=== PATIENT | female | born 1930 | race Caucasian/White ===

== ENCOUNTER 2016-08-14 09:23 | Inpatient (IN) | payer OTHER, BC ==
[~2016-08-14] VITALS: Ht 162.6 cm; Wt 107.5 kg
--- NOTE | ~2016-08-14 | HC ---
[facility] [place] [address] CONSULTATION Name: KIAH HOOD Room #: 301-I ADM IN M.R.#: [id number] Admission: 08/14/16 Attend Phys: Concepcion Mahoney Discharge: Date of : 29 Report #: [id number] THIS REPORT FOR: //name// CC: Concepcion Hernandez DATE OF SERVICE: 08/19/2016 HISTORY OF PRESENT ILLNESS: The patient is an 85-year-old white female who was transferred from [facility]. She had a fall at home when she tripped over a step and fell on her shoulder. This was noted to be a non-syncopal fall. Workup revealed a left upper humeral fracture. She was noted to have some acute renal insufficiency. She also had some hyperkalemia and was given some Kayexalate. She was given some normal saline for hyponatremia. She has been seen by Orthopedics with a plan for a left hemiarthroplasty tomorrow. We are seeing her in rehabilitation medicine consultation. PAST MEDICAL HISTORY: Includes hypertension, colitis, anxiety, cataracts, hysterectomy, tubal ligation, loop LINQ replacement, foot spur surgery and . PAST SURGICAL HISTORY: As noted above. HABITS: Nonsmoker. No history of tobacco use or alcohol use. ALLERGIES: LEVOFLOXACIN. SOCIAL HISTORY: Lives in [place]. House, split level. Did not utilize gait aids. There is a daughter that lives in the area that can assist. The patient is uncertain if the daughter could stay with her or if she could stay with the daughter. REVIEW OF SYSTEMS: Did not offer any current complaints of chest pain, shortness of breath or abdominal discomfort. She has some left shoulder discomfort as expected. No complaints of other extremity joint complaints at this time. PHYSICAL EXAMINATION: GENERAL: She is an 85-year-old white female, rather hard of hearing, but in no distress. VITAL SIGNS: Last recorded temperature is 98.6, pulse 95, respirations 14 and blood pressure 144/77. NEUROLOGIC: The patient is alert. She is pleasant. She is a good historian. Facies are symmetric. She has functional range of motion of the right upper extremity, without focal weakness. Left upper extremity [place] [address] CONSULTATION Name: KIAH HOOD Room #: 301-I [facility] IN .R.#: [id number] Admission: 08/14/16 Attend Phys: Concepcion Mahoney Discharge: Date of : 29 Report #: [id number] is a wrap in place. She can move her thumb and fingers without difficulty. I did not test her proximally. In her lower extremities, there is no focal calf swelling. Functional range of motion with strength to grade 4 to 4+/5. DTRs are trace to 1. She has transfer with contact guard and has ambulated 15 feet contact guard thus far. ASSESSMENT: An 85-year-old white female with the following problem list: 1. Left proximal humerus fracture. 2. Non-syncopal fall. 3. Acute renal insufficiency. 4. Paroxysmal atrial fibrillation. 5. Electrolyte abnormalities. 6. Hypertension. 7. Previous bradycardia. 8. Anxiety. 9. Hypothyroidism. 10. Loop LINQ in place. PLAN: The patient is scheduled for her shoulder hemiarthroplasty tomorrow. Agree with therapy orders as written. At this point, we will follow along with you regarding any rehabilitation therapy needs. Thank you for asking us to assist in this patient's care. By: [id number] [id number] Blair Garcia MD /nt
--- NOTE | ~2016-08-14 | HC ---
[facility] [place] [address] CONSULTATION Name: KIAH HOOD Room #: 430-P ADM IN M.R.#: [id number] Admission: 08/14/16 Attend Phys: Concepcion Mahoney Discharge: Date of : 29 Report #: [id number] THIS REPORT FOR: //name// CC: Concepcion Hernandez DATE OF SERVICE: 08/20/2016 PRIMARY CARE PHYSICIAN: Dr. Porfirio Purcell. REFERRAL PHYSICIAN: Dr. Davis. REASON FOR REFERRAL: Dyspnea and hypoxia. HISTORY OF PRESENT ILLNESS: The patient is an 85-year-old white female who was admitted on 08/14/2016 for acute renal failure. She was found to be hypoxic . A pulmonary consultation was requested. The patient had a fall earlier on August 11 sustaining a left humerus fracture. She was seen and evaluated and outpatient surgery was planned. When she returned to the hospital for surgical repair for surgery on August 13, patient was found to have acute renal failure. She was subsequently admitted. She was initially seen at [facility] and was transferred to [facility]. Of note, creatinine on admission was 4.4. Earlier today, she underwent repair of a complex comminuted four-part fracture of the left proximal humerus. Earlier today, she underwent left proximal humeral hemiarthroplasty for complex comminuted four-part fracture involving the left proximal humerus. The patient earlier had received a local interscalene block. The patient had minimal emesis during the preoperative period with complaints of dyspnea and hypoxia, the patient was electively intubated and underwent general anesthesia. Postoperatively, the patient is extubated. There was some increased secretions noted. Concerns were possible aspiration. Presently, patient is somewhat sedated from anesthesia. She complains of dyspnea. Portable chest x-ray shows vascular congestion, questionable left lower lobe infiltrates. PAST MEDICAL HISTORY: As mentioned above including history of hypertension, [facility] [address] [place] [address] CONSULTATION Name: KIAH HOOD Room #: 430-[facility] IN [facility]#: [id number] Admission: 08/14/16 Attend Phys: Concepcion Mahoney Discharge: Date of : 29 Report #: [id number] hypothyroidism, history of colitis, anxiety disorder, hypercholesterolemia. PAST SURGICAL HISTORY: Include cataract surgery, hysterectomy, bilateral tubal ligation, prior , a bone spur surgery. ALLERGIES: LEVOFLOXACIN, reactions as specified. CURRENT MEDICATIONS: Reviewed. FAMILY HISTORY: Noncontributory. SOCIAL HISTORY: She is . She lives independently by herself. She resides in [place], [place]. She had been active up until the day of admission. REVIEW OF SYSTEMS: Deferred as patient has still somnolent following general anesthesia. PHYSICAL EXAMINATION: GENERAL: She is arousable, in no apparent distress. VITAL SIGNS: Temperature is 98.3 degrees Fahrenheit, pulse is 104, respiratory rate is 18, blood pressure is 173/76 mmHg, saturation is 92%. She is on 3 liters of O2. HEENT: Normocephalic, atraumatic. NECK: Supple, without lymphadenopathy or thyromegaly. CHEST: Breath sounds are decreased bilaterally, coarse breath sounds bilaterally noted. CARDIOVASCULAR: Heart sounds are distant. No obvious murmurs or gallop. There is no JVD. There is no carotid bruit. Pulses are positive 2+/4+ bilaterally. ABDOMEN: Soft, nontender, no organomegaly or masses felt. EXTREMITIES: There is edema, cyanosis or clubbing. IMPRESSION: 1. Complex comminuted left proximal humerus fracture, status post surgery as mentioned above. 2. Hypoxia. There were concerns for possible mild aspiration. Chest x-ray shows possible left lower lobe atelectasis. 3. Acute kidney injury. 4. Hypertension. 5. Paroxysmal atrial fibrillation, sick sinus syndrome. 6. Anemia. 7. Severe protein calorie malnutrition, albumin 1.7, baseline arterial blood gas on August 15 revealed pH 7.34, pCO2 of 33, pO2 79. RECOMMENDATION AND DISCUSSION: Hypoxia in this 85-year-old white female undergoing surgery. There is an inherent expectant risk for possible postop [address] [address] CONSULTATION Name: KIAH HOOD Room #: 430-P [facility] IN M.R.#: [id number] Admission: 08/14/16 Attend Phys: Concepcion Mahoney Discharge: Date of : 29 Report #: [id number] hypoxia including atelectasis, even mild aspiration. We will treat for presumed aspiration pneumonia, Zosyn and vancomycin with be initiated. Wean O2 for saturation 90%. Follow up chest x-ray tomorrow. We will also start chest physiotherapy once the patient is able. Thank you for this consultation. <ELECTRONICALLY SIGNED> By: Eliezer Elder MD 08/21/16 1628 1631 0506 Eliezer Elder MD /nt
--- NOTE | ~2016-08-14 | EKG ---
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 : 1930 Requested By: Babs Trujillo Order Number: [id number] MD: Harris Hitchcock Measurements Intervals Craig Rate: 68 P: 59 CT: 218 QRS: 54 QRSD: 90 T: 42 QT: 395 QTc: 421 Interpretive Statements Sinus rhythm Borderline prolonged CT interval Baseline wander in lead(s) II No previous ECG available for comparison Electronically Signed On 08-16-2016 11:28:27 CDT by Harris Hitchcock [email or web address] <ELECTRONICALLY SIGNED> By: Harris Hitchcock MD, [facility] 08/16/16 1128 1153 1153 Harris Hitchcock MD, [facility] /EPI
--- NOTE | ~2016-08-14 | O ---
[facility] [place] [address] OPERATIVE REPORT Name: KIAH HOOD Room #: 240-P ADM IN M.R.#: [id number] Admission: 08/14/16 Attend Phys: Concepcion Mahoney Discharge: Date of : 29 Report #: [id number] THIS REPORT FOR: //name// CC: Concepcion Kangwster DATE OF SERVICE: 08/20/2016 PREOPERATIVE DIAGNOSIS: Complex comminuted 4-part fracture, left proximal humerus. POSTOPERATIVE DIAGNOSIS: Complex comminuted 4-part fracture, left proximal humerus. PROCEDURE: Left proximal humeral hemiarthroplasty. SURGEON: Blair Rojas MD. INDICATIONS: This heavy, but still reasonably active 85-year-old female presents after a fall which resulted in a severely comminuted displaced 4-part fracture of the left proximal humerus. She was transferred here because of other general medical and renal problems. Those have improved, and she now seems ready to proceed with surgical reconstruction. The patient and family have talked with my partner Dr. Elizabeth, and they have agreed to go ahead with a proximal humeral hemiarthroplasty procedure, given the other delays due to her other medical issues. Dr. Elizabeth and family have asked me to proceed with surgery today, as Dr. Elizabeth is currently out of town. I have discussed with the patient and family the nature of this injury. We have reviewed the x-rays, and I have explained that this is a severely comminuted fracture with significant displacement. Consequently, I think a hemiarthroplasty reconstruction is the most reasonable approach. They understand and wished to proceed. DESCRIPTION OF PROCEDURE: The patient was taken to the operating room. An interscalene block was applied, and she was also placed under general anesthesia. At the beginning of the case, she was somewhat anxious and seemed to be a bit tachypneic. In addition, during the induction dissection, she had a small amount of vomiting. This did not seem to contaminate the airway, but we elected to pause before proceeding and evaluate her airway and vocal cords were carefully suctioned and no debris was noted. The tube was suctioned, and no debris was noted in her lungs. A chest x-ray was obtained, and there was no evidence of pneumothorax from the block and no any other significant pathology. Given this, it seemed that she was safe and stable and seemed to be exchanging nicely. We elected therefore to go ahead with our planned procedure. She was then positioned on the beachchair in a 30 degree semi upright position. [address] [address] OPERATIVE REPORT Name: KIAH HOOD Room #: [address] [place] [address] IN M.R.#: [id number] Admission: 08/14/16 Attend Phys: Concepcion Mahoney Discharge: Date of : 29 Report #: [id number] The left shoulder and arm were meticulously prepped and draped. Prophylactic intravenous antibiotics were administered. An anterior longitudinal skin incision was made, beginning at about the coracoid process and extending distally along the deltopectoral interval. The deltoid was elevated and reflected laterally along with the cephalic vein. The pectoralis was identified, and the upper 1-2 cm were elevated from the humerus to allow better exposure. The area of fracture of the proximal humerus was badly comminuted with significant displacement of multiple fracture fragments. The subscapularis had been essentially pulled completely away from the bony attachment with only a few small fragments of bone remaining. The biceps tendon seems to be intact and stable. The greater tuberosity is markedly osteopenic, but there is still some bone attached, and this was secured with a large #2 FiberWire suture. The humeral head fragment was also comminuted, and this was removed and the joint surface of the glenoid was inspected and felt to be satisfactory. The labrum appeared to be intact, and the attachment of the biceps tendon appeared to be intact. The smaller loose bony fragments in the area were carefully debrided, and area was thoroughly irrigated. At this point, the proximal aspect of the humeral canal was inspected. The upper aspect was levelled just slightly to create a good surface for application of the hemiarthroplasty stem. The DePuy proximal humeral hemiarthroplasty components were utilized. The canal was opened and seemed to be best sized for a size 10 stem. A trial reduction was performed and a -5 mm body was placed on the 10 mm trial stem, a 44 mm collar and a 44 x 15 mm head seemed to fit most appropriately. The implant was positioned in about 25-30 degrees of retroversion, and this seemed to align nicely with the face of the glenoid. In general, alignment and stability seemed to be satisfactory, and length seemed to be appropriate. The position was marked on the upper humerus to confirm rotation, and the trial component was removed. A cement restrictor was placed in the canal, 4 small drill holes were placed, spaced along the lateral aspect of the humeral bone, and three #2 FiberWire sutures were placed. The methyl methacrylate cement was then mixed, and injected into the canal. The permanent DePuy size 10 stem with a size 10, -5 body was then inserted. Again this was placed in about 25-30 degrees of retroversion, similar to the trial component. This seemed to seat nicely and appeared to be secure. Gentle pressure was applied as the cement hardened and any excess cement was removed from around its margin. Once this was secured, the permanent 44 mm suture collar and the 44 mm head was applied. The alignment and fit appeared to be satisfactory. The heavy sutures which had been previously placed were passed through the suture collar in a fashion to bring the soft tissues and remaining greater tuberosity back around the components in a satisfactory fashion. Some additional heavy suture was placed from back to front to further reinforce the soft tissues from the posterior, up to the anterior aspect. These were tied firmly and then brought down through the suture loops at the lateral aspect of the humerus which further tethered and engaged the soft tissue repair in a satisfactory fashion. Once this had been completed, the shoulder was gently manipulated to an extensive range of motion, and the shoulder seemed to be stable, and the soft tissue repair appeared to be [address] [address] OPERATIVE REPORT Name: KIAH HOOD Room #: 240-P [facility] IN .R.#: [id number] Admission: 08/14/16 Attend Phys: Concepcion Mahoney Discharge: Date of : 29 Report #: [id number] satisfactory. Good hemostasis was established. The entire wound was copiously irrigated. A single Hemovac was left in the wound exiting through a separate stab incision. The deltopectoral interval was closed with #1 Vicryl. The subcutaneous tissues were closed with 2-0 Monocryl. The skin was closed with skin lanette. A sterile dressing was applied, and the arm was protected in an arm sling. The patient was then awakened and returned to the recovery room in satisfactory condition. <ELECTRONICALLY SIGNED> By: Blair Rojas MD 08/21/16 0908 1424 1610 Blair Rojas MD /nt
--- NOTE | ~2016-08-14 | 2DMMODE ---
[facility] [address] [place] [address] 2 D/M-MODE ECHOCARDIOGRAM Name: KIAH HOOD Room #: 301-I ADM IN M.R.#: [id number] Admission: 08/14/16 Attend Phys: Be Garcia Discharge: Date of : 29 Date of Service: 08/17/16 1355 Report #: [id number] THIS REPORT FOR: //name// APPROVED REPORT Study performed: 08/17/2016 12:55:53 EXAM: Comprehensive 2D, Doppler, and color-flow Echocardiogram Patient Location: Bedside/Room 301 Blood Pressure: 115/51 mmHg HR: 76 bpm Rhythm: Atrial Fibrillation Other Information Study Quality: Adequate Technically limited study due to body habitus. Indications Atrial Fibrillation Hx: HTN 2D Dimensions RVDd: 38.81 mm LVEF(%): 49.56 (>50%) IVSd: 9.04 (7-11mm) LVOT Diam: 20.84 (18-24mm) LVDd: 44.38 mm PWd: 7.62 (7-11mm) Ascending Aorta: 36.09 mm LVDs: 33.31 (25-40mm) Aortic Root: 31.72 mm Hobson's LVEF: 49.56 % Volumes Left Atrial Volume (Systole) Single Plane 4CH: 69.30 mL Single Plane 2CH: 57.42 mL LA ESV Index: 32.00 mL/m2 Aortic Valve AoV Peak Anatoliy.: 1.72 m/s AO Peak Gr.: 20.60 mmHg LV Max P.27 mmHg LV Max: 1.03 m/s Mitral Valve MV E Max Anatoliy.: 1.06 m/s [facility] [address] [address] 2 D/M-MODE ECHOCARDIOGRAM Name: KIAH HOOD Room #: [facility] ADM IN [facility].#: [id number] Admission: 08/14/16 Attend Phys: Be Garcia Discharge: Date of : 29 Date of Service: 08/17/16 1355 Report #: [id number] MV Decel. Time: 202.85 ms Pulmonary Valve PV Peak Anatoliy.: 0.93 m/s PV Peak Gr.: 3.49 mmHg Tricuspid Valve TR Peak Anatoliy.: 2.79 m/s RAP Estimate: 5.00 mmHg TR Peak Gr.: 31.08 mmHg RVSP: 36.00 mmHg Left Ventricle The left ventricle is normal size. There is normal LV segmental wall motion. There is normal left ventricular wall thickness. Left ventricular systolic function is normal. LVEF is 55-60%. Diastology indeterminate due to Afib. Right Ventricle The right ventricle is normal size. The right ventricular systolic function is normal. Atria Left atrium is mildly dilated. The right atrium size is normal. Aortic Valve The Aortic valve is sclerotic. Mild aortic regurgitation. There is no aortic valvular stenosis. Mitral Valve Mitral valve leaflets are mildly thickened. Trace mitral regurgitation. Tricuspid Valve The tricuspid valve is normal in structure. There is mild to moderate tricuspid regurgitation. The right atrial pressure is estimated at 5 mmHg. There is mild pulmonary hypertension with an estimated PAP of 31mmHg. Pulmonic Valve The pulmonary valve is normal in structure. Mild pulmonic regurgitation. Great Vessels The aortic root is normal in size. The ascending aorta is normal in size. IVC is normal in size and collapses >50% with inspiration. [facility] [address] [place] [address] 2 D/M-MODE ECHOCARDIOGRAM Name: KIAH HOOD Room #: 301-I ADM IN .R.#: [id number] Admission: 08/14/16 Attend Phys: Be Garcia Discharge: Date of : 29 Date of Service: 08/17/16 1355 Report #: [id number] Pericardium There is no pericardial effusion. <Conclusion> The left ventricle is normal size. LVEF is 55-60%. Left atrium is mildly dilated. The Aortic valve is sclerotic. Mitral valve leaflets are mildly thickened. Trace mitral regurgitation. There is mild to moderate tricuspid regurgitation. The right atrial pressure is estimated at 5 mmHg. There is mild pulmonary hypertension with an estimated PAP of 31mmHg. Mild pulmonic regurgitation. <ELECTRONICALLY SIGNED> By: Shadi Joseph MD 08/17/16 1355 1355 1355 Shadi Joseph MD /INF
--- NOTE | ~2016-08-14 | HC ---
[facility] [place] [address] CONSULTATION Name: KIAH HOOD Room #: 430-P [facility] IN M.R.#: [id number] Admission: 08/14/16 Attend Phys: Concepcion Mahoney Discharge: 08/25/16 Date of : 29 Report #: [id number] THIS REPORT FOR: //name// CC: Be Hernandez DICTATED BY: Selvin PRINCE DATE OF SERVICE: 08/16/2016 DICTATED BY: Selvin Kendrick, nurse practitioner with [facility]. LOCATION: Currently in room 301. REASON FOR CONSULTATION: Left humeral fracture. HISTORY OF PRESENT ILLNESS: The patient is an 85-year-old white female who is at home. Family and the patient states that she was in very good health and was very active. 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 She suffered a lot of pain in her left shoulder, which caused her to go into [facility]. While there, she was diagnosed with left humeral fracture. She was sent home with medication and was scheduled for surgical repair. When she went in for her surgical repair on 08/13/2016, she was found to have acute kidney injury with the creatinine level of 4.4. In addition, she was hyperkalemic. She was readmitted to [facility] and then transferred to [facility] as [facility] did not have a low pressure boiler tender to attend her. While assessing the patient, mother was at bedside. The patient was alert and oriented, very pleasant. She is hard of hearing. Daughter helped with her medical history. In addition, since admission for her acute kidney injury, she has developed wheezes and rales which she has been treated by. She is also being seen by the low pressure boiler tender. The patient was very good at providing history, although the daughter states that she started to get confused with different hospitals in her current length of stay. PAST MEDICAL HISTORY: Includes hypertension, arrhythmia, hypothyroidism, colitis, cataracts. PAST SURGICAL HISTORY: Includes tubal ligation, hysterectomy, cataract surgery, and foot surgery. ALLERGIES: LEVAQUIN. MEDICATIONS: Please see MAR. SOCIAL HISTORY: The patient is a . She lives in [place], [place]. [address] [address] CONSULTATION Name: KIAH HOOD Room #: 430-P [facility] IN [facility].#: [id number] Admission: 08/14/16 Attend Phys: Concepcion Mahoney Discharge: 08/25/16 Date of : 29 Report #: [id number] The patient is very active and actually was taking care of her yard until recently. PERTINENT LABORATORY DATA: BUN 68, creatinine 12.8, white count 8.8, hemoglobin 11.2, platelets 276,000. PHYSICAL EXAMINATION: EXTREMITIES: Assessment of left shoulder, the patient is currently in immobilizer. She is neurovascularly intact to the left upper extremity. Strong 5/5 professional builder on her left hand. Full range of motion on wrist and elbow. Nontender on wrist, hand and elbow of left side. SKIN: Dry and intact. Ecchymosis noted about the shoulder. Unable to palpate shoulder as it is painful. No range of motion was done as she needs to be in an immobilizer. Denies neck pain. Full range of motion of neck. Imaging of the left shoulder as follows, impression was fracture of left humeral neck and head. DIAGNOSIS: Left upper humeral fracture post fall and acute renal failure. PLAN: Will be to do a left hemiarthroplasty of the left shoulder once she is cleared for surgery. We will continue to follow her until she is cleared and schedule accordingly. Thank you for the consult. <ELECTRONICALLY SIGNED> By: Toney Elizabeth MD 08/28/16 0652 1336 2358 Toney Elizabeth MD /nt
--- NOTE | ~2016-08-14 | HC ---
[facility] [place] [address] CONSULTATION Name: KIAH HOOD Room #: 301-I ADM IN M.R.#: [id number] Admission: 08/14/16 Attend Phys: Be Garcia MD Discharge: Date of : 29 Report #: [id number] THIS REPORT FOR: //name// CC: Be Hernandez DATE OF ADMISSION: 08/14/2016. DATE OF CONSULTATION: 08/14/2016. REASON FOR CONSULTATION: Acute kidney injury and hyperkalemia HISTORY OF PRESENT ILLNESS: This is an 85-year-old female who was in her usual and active state of health 3 days ago. On 08/11/2016 early in the morning, she fell down 8 stairs and suffered pain in her left shoulder. She was diagnosed in the [facility] with a left humeral fracture. She was sent home with medication including tramadol and told to take that alternating with ibuprofen, which she was taking 400 mg q. 3-6 hours. She was scheduled for surgical repair yesterday and went in yesterday and was found to have acute kidney injury with a creatinine level up to 4.4. She was also noted to be hyperkalemic. She was admitted to [facility] and then transferred here this morning for further care. In talking to the patient and her daughters and granddaughter who are in the room with her and more of this comes from the daughters and granddaughter than from the patient as the patient has been given morphine and is somewhat somnolent, she has no prior history of any renal-related problems. There is a documented creatinine level of 1.4 from 02/09/2016 at this institution. Now, she is up to a BUN of 46, creatinine of 4.8. She has a Balderas catheter and draining a moderate amount of rather concentrated urine. In addition, potassium is 5.7, sodium 128, chloride is 93. Urinalysis: Specific gravity greater than 1.030, pH 5.0 with 3+ blood, 1+ protein, micro exam shows 6-15 white cells, 10-20 red cells. There was a CT scan done at [facility] and although I have not looked at the images, I have read the report, which says normal appearing kidneys other than what appears to be a cyst. She is complaining of pain in other areas including some ribs and some abdomen and some back. I cannot find that a CPK was drawn, none has been drawn here. Past medical history of hypertension, usually on some benazepril with hydrochlorothiazide. In fact, she has been taking that for most of the recent days. That is one of her baseline meds. She has also been on some levothyroxine 0.1 mg daily, atorvastatin 40 mg daily, Bentyl 20 mg daily, Ambien 10 mg daily, atenolol 100 mg daily and some p.r.n. lorazepam. PAST MEDICAL HISTORY: Hypertension, on meds as noted above. She has had some questionable heart arrhythmias and has had a heart monitor placed to Dr. Joseph. She has hypothyroidism and is on replacement. She has had some [facility] [address] [place] [address] CONSULTATION Name: KIAH HOOD Room #: 301-I ADM IN [facility].#: [id number] Admission: 08/14/16 Attend Phys: Be Garcia MD Discharge: Date of : 29 Report #: [id number] colitis/bowel type symptoms for which she is on the Bentyl. She has had a hysterectomy and cataracts taken care of. She has had a previous tubal ligation. She has also had a foot surgery previous. ALLERGIES: Are noted to LEVAQUIN. FAMILY HISTORY: Noncontributory. SOCIAL HISTORY: The patient is a . She lives in [place], [place]. According to her daughters and granddaughter, she remains very active. In fact her plan for the following day before she fell was that she was going to go out and clean all her leaves out of her yard and then run a mower there to clean up those additional leaves. Apparently, this is her normal state of being very active. REVIEW OF SYSTEMS: Currently is somnolent after receiving some morphine. She is having pain in her shoulder, also pain in her right upper quadrant and right ribs. Denies dyspnea, cough, unaware of chest pain or palpitations. She has a Balderas catheter in place normally, no voiding difficulties. She readily admits to the daughter that she had decreased intake over the last few days because she was having pain and did not want to take in more, so she would have to get to the bathroom and be more mobile. She was taking other medications noted above; intake of food and fluids has been decreased over the past few days. No visual change or headache. She is very hard of hearing at baseline. No fevers, chills or sweats. PHYSICAL EXAMINATION: GENERAL: Elderly appearing female. She is somnolent after just getting some morphine. VITAL SIGNS: Blood pressure 128/38, heart rate is 73, respiratory rate 18, temperature 98.9. HEENT: Shows pupils are equal and reactive. Sclerae nonicteric. Oral mucosa is dry. NECK: Veins are not distended. Neck is supple. Left arm is in a splint. CHEST: Fairly clear bilaterally. CARDIOVASCULAR: Heart has a regular rate and rhythm bordering on a bradycardia. ABDOMEN: Has active bowel sounds. She is tender in the right subcostal area and around the right lower . I cannot palpate organomegaly or masses. EXTREMITIES: Show no peripheral edema. Her extremities are warm, left arm is in a splint as noted above. DIAGNOSTIC DATA: Sodium 128, potassium 5.7, chloride 93, bicarbonate 22, BUN 68, creatinine 4.8, glucose 106, calcium 8.1. Total protein 6.6, albumin 2.7, AST of 43, ALT of 31, white count 8.8, hemoglobin 11.2, hematocrit 35.5, platelets 276,000. Urinalysis as described above. [address] [address] CONSULTATION Name: KIAH HOOD Room #: 301-I ADM IN [facility].#: [id number] Admission: 08/14/16 Attend Phys: Be Garcia MD Discharge: Date of : 29 Report #: [id number] ASSESSMENT AND PLAN: 1. Acute kidney injury. She has had some volume depletion, relative hypotension with blood pressures in the 90 at [facility], exposure to benazepril, which is one of her chronic medications as well as hydrochlorothiazide. On top of that, she has been taking nonsteroidals in the form of ibuprofen, which were prescribed. I think all this has resulted in acute kidney injury. She has been oliguric, but her urine output appears to be increasing. She has gotten some IV fluid and blood pressure is doing better. She is not profoundly volume depleted on exam, but does need additional IV fluids. We need to check a CPK to make sure that she does not have evidence of rhabdomyolysis. Based upon her findings of her urine and her blood, I cannot rule it out at this point. I will go ahead and provide some alkalinization of her IV fluids. She is on half bicarb and I will add some bicarbonate to that to bring her to isotonic fluid with the bicarb as noted above. 2. Hyperkalemia related to her acute kidney injury, the nonsteroidals and the SRINIVAS inhibitor. We will give her some albuterol and continue the fluids with the bicarbonate as noted above, p.r.n. Lasix if urine output slows. We will recheck those labs. 3. Hypertension on history: She was hypotensive with [facility]. Again, her antihypertensives have been held. 4. Left arm fracture as noted above. PLAN: 1. Switch IV fluids to the half normal with bicarb as noted above. 2. Albuterol 10 mg per aerosol. 3. Repeat labs. 4. Follow urine output. 5. We will follow along closely in the care of this very pleasant patient. <ELECTRONICALLY SIGNED> By: Kofi Mackey MD 08/17/16 0725 [id number] Kofi Mackey MD /nt
--- NOTE | ~2016-08-14 | HC ---
[facility] [place] [address] CONSULTATION Name: KIAH HOOD Room #: 301-I ADM IN M.R.#: [id number] Admission: 08/14/16 Attend Phys: Be Garcia MD Discharge: Date of : 29 Report #: [id number] THIS REPORT FOR: //name// CC: Be Kangwster DATE OF SERVICE: 08/16/2016 REASON FOR CONSULTATION: Atrial fibrillation, history of bradycardia. HISTORY OF PRESENT ILLNESS: The patient is an 85-year-old woman with intermittent palpitations for which she underwent Biotronik loop recorder implantation about 6 months ago. On Wednesday of this past week, she had a nonsyncopal fall, fell down a flight of stairs and sustained a left shoulder fracture. She was diagnosed in the Emergency Department and treated with anti-inflammatory medications and arrangements were made for her to return on of this past week for surgery. When she returned, a baseline blood work demonstrated acute renal failure with a creatinine of about 4.5. She was admitted for further evaluation. Since admission, she has had paroxysms of atrial fibrillation. She has had in the middle of the night one episode of sinus bradycardia with an escape narrow complex junctional rhythm at 37 beats per minute. She is transferred to [facility] for further evaluation. The patient denies chest heaviness, pressure or ischemic type symptoms. No history of near syncope or syncope. ALLERGIES: She is allergic to LEVAQUIN. MEDICATIONS: Her medicines include Lexapro, Synthroid 100 mcg daily, atenolol 50 mg daily, atorvastatin 40 mg daily. PAST MEDICAL HISTORY: Medical records have been reviewed and include history of hypothyroidism, on replacement, history of hypertension, hemorrhoidal bleeding, pneumonia in 2014, tubular in 1952, uterine cancer in 1991. SOCIAL HISTORY: She lives independently. FAMILY HISTORY: Father of cancer. Mother with coronary artery disease. REVIEW OF SYSTEMS: All systems negative except as that noted above. PHYSICAL EXAMINATION: GENERAL: Reveals an elderly woman who is alert, audible wheezing is heard. VITAL SIGNS: Blood pressure is 102/74, heart rate of 82 and irregular. She is afebrile, 5 feet 4 inches tall, 225 pounds. HEENT: There are neither xanthelasma, subcutaneous xanthomata, oral mucosal or [facility] [address] [place] [address] CONSULTATION Name: KIAH HOOD Room #: 301-I ADM IN [facility].#: [id number] Admission: 08/14/16 Attend Phys: Be Garcia MD Discharge: Date of : 29 Report #: [id number] digital cyanosis or kyphoscoliosis present. CHEST: Reveals a few end expiratory wheezes. CARDIOVASCULAR: An irregularly irregular rhythm with normal S1, S2. ABDOMEN: Soft and nontender. EXTREMITIES: Without cyanosis, clubbing or edema. Radial pulses are 2+. NEUROLOGIC: She is alert with a nonfocal exam. LABORATORY DATA: Sodium is 128, potassium 4.2, troponin 0. White count 9.7, hemoglobin 7.9. RADIOLOGICAL DATA: Chest x-ray demonstrates subsegmental basilar atelectasis. Shoulder films demonstrated left humeral neck and head fracture. IMPRESSION: 1. Paroxysmal atrial fibrillation. 2. Acute kidney injury. 3. Hypertension. RECOMMENDATIONS: 1. Low dose beta blockade. 2. Interrogate Foodflyronik loop recorder. This will be done in the morning when our office opens. 3. At this point, despite an elevated CHADS score, I would hold off on anticoagulant therapy with her anemia and recent major trauma with humerus fracture. 4. Echocardiogram with Doppler. I have discussed these issues with the patient and her family. Thank you for asking me to participate in her care. <ELECTRONICALLY SIGNED> By: Harris Hitchcock MD, [facility] 08/17/16 0824 1013 [id number] Harris Hitchcock MD, FACC /nt
[~2016-08-14 09:23] MED LIST: AMBIEN 10 MG TA10 MG; ANUSOL-HC25 MG RECTAL; ARMOUR THYROID30 M1; ATENOLOL 100MG100 M2; ATIVAN0.5 MG PO; BENAZEPRIL-HCT1 EA10; BENTYL 20 MG TA20 M1; CIPROFLOXACIN500 M1 PO; LEVOTHYROXINE 0.1 MG PO; LIPITOR40 MG; PROCTOCREAM-HC30 GM RC
[2016-08-14 11:24] VITALS: BP 121/38
[2016-08-14 12:33] LABS: ALBUMIN 2.7 g/dL (3.4-5.0); CALCIUM 8.1 mg/dL (8.5-10.1); CREATININE 4.8 mg/dL (0.6-1.0); POTASSIUM 5.7 mmol/L (3.5-5.1); TOTAL BILIRUBIN 0.8 mg/dL (<0.1-1.0); TOTAL PROTEIN 6.6 g/dL (6.4-8.2)
[2016-08-14 12:35] LABS: URINE BILIRUBIN NEGATIVE (Negative); URINE BLOOD 3+ (Negative); URINE COLOR YELLOW; URINE GLUCOSE-RANDOM* NEGATIVE (Negative); URINE KETONES TRACE (Negative); URINE LEUKOCYTES-REFLEX 1+ (Negative); URINE PROTEIN (DIPSTICK) 1+ (Negative); URINE SPECIFIC GRAVITY >= 1.030 (1.003-1.035); URINE UROBILINOGEN 0.2 E.U./dl (0.2-1.0)
[2016-08-14 12:59] LABS: CASTS None Seen /LPF (None Seen); CRYSTALS None Seen /LPF (None Seen); SQUAMOUS 4-10 Moderate /LPF (0-3); TRANSITIONAL EPITHEL CELL 0-3 Few /LPF (None Seen)
[2016-08-14 13:00] LABS: URINE WBC-REFLEX 6-15 Few /HPF (0-5)
[2016-08-14 15:46] VITALS: BP 132/84
[2016-08-14 19:25] VITALS: BP 147/47
[2016-08-14 21:11] LABS: URINE POTASSIUM-RANDOM* 69.8 mmol/L (Not Estab.)
[2016-08-15 04:32] VITALS: BP 117/55
[2016-08-15 07:58] VITALS: BP 118/51
[2016-08-15 08:11] LABS: HEMATOCRIT 25.2 % (37.0-47.0); HEMOGLOBIN 8.2 gm/dL (12.0-15.0); MCH 25.5 pg (26.0-34.0); MCHC 32.4 g/dL (28.0-37.0); MCV 78.8 fL (80.0-100.0); RBC 3.2 mil/uL (4.20-5.00); RDW 17.3 % (10.5-14.5); WBC 7.3 thou/uL (4.0-11.0)
[2016-08-15 08:31] LABS: ALBUMIN 2.1 g/dL (3.4-5.0); ANION GAP 14 mmol/L (7-16); BUN 77 mg/dL (7-18); CALCIUM 7.6 mg/dL (8.5-10.1); CHLORIDE 93 mmol/L (98-107); CO2 21 mmol/L (21-32); CREATININE 4.4 mg/dL (0.6-1.0); GLUCOSE 134 mg/dL (74-106); PHOSPHORUS 7.1 mg/dL (2.5-4.9); POTASSIUM 4.8 mmol/L (3.5-5.1); SODIUM 128 mmol/L (136-145); TROPONIN-I < 0.04 ng/mL (<0.04-0.07)
[2016-08-15 09:24] LABS: ABG SAMPLE TYPE ARTERIAL; HCO3 17.9 mmol/L (22.0-26.0); LACTATE 3.15 mmol/L (0.5-2.0); O2(CT) 12.1 mL/dL (15.0-23.0); PCO2 33.2 mmHg (35.0-45.0); PO2 79.8 mmHg (80.0-100.0); STICK SITE L.RADIAL; pH 7.349 (7.360-7.450); sO2 95.4 % (92.0-98.0); tCO2 18.9 mmol/L (24.0-30.0)
[2016-08-15 09:25] LABS: FIO2 21 %
[2016-08-15 15:31] VITALS: BP 114/47
[2016-08-15 19:49] VITALS: BP 81/43
[2016-08-15 20:02] VITALS: BP 88/49
[2016-08-15 23:42] VITALS: BP 87/56
[2016-08-16 03:38] VITALS: BP 110/49
[2016-08-16 04:39] LABS: HEMATOCRIT 24.2 % (37.0-47.0); HEMOGLOBIN 7.9 gm/dL (12.0-15.0); MCH 25.3 pg (26.0-34.0); MCHC 32.5 g/dL (28.0-37.0); MCV 77.8 fL (80.0-100.0); PLATELET COUNT 226 thou/uL (150-400); RBC 3.11 mil/uL (4.20-5.00); RDW 17.6 % (10.5-14.5); WBC 9.7 thou/uL (4.0-11.0)
[2016-08-16 04:57] LABS: MANUAL DIFF YES
[2016-08-16 05:05] LABS: ALBUMIN 1.9 g/dL (3.4-5.0); CALCIUM 7.2 mg/dL (8.5-10.1); CREATININE 4.2 mg/dL (0.6-1.0); PHOSPHORUS 6.2 mg/dL (2.5-4.9); POTASSIUM 4.4 mmol/L (3.5-5.1)
[2016-08-16 07:13] LABS: ABSOLUTE NEUTROPHILS 8.3 thou/uL (1.4-8.2); METAMYELOCYTES 1 %; TOTAL CELL COUNT 100
[2016-08-16 07:14] LABS: MICROCYTES 2+; TOXIC GRANULATION SLIGHT
[2016-08-16 07:16] LABS: HYPOCHROMASIA SLIGHT; POLYCHROMASIA SLIGHT
[2016-08-16 07:53] VITALS: BP 102/74
[2016-08-16 16:19] VITALS: BP 112/43
[2016-08-16 18:59] VITALS: BP 145/65
[2016-08-16 23:35] VITALS: BP 104/49
[2016-08-17 04:16] VITALS: BP 135/58
[2016-08-17 06:19] LABS: HEMATOCRIT 23.1 % (37.0-47.0); HEMOGLOBIN 7.5 gm/dL (12.0-15.0); MCHC 32.6 g/dL (28.0-37.0); MCV 76.7 fL (80.0-100.0); PLATELET COUNT 222 thou/uL (150-400); RBC 3.01 mil/uL (4.20-5.00)
[2016-08-17 06:23] LABS: MANUAL DIFF YES
[2016-08-17 06:39] LABS: ALBUMIN 1.6 g/dL (3.4-5.0); CALCIUM 6.8 mg/dL (8.5-10.1); CREATININE 3.3 mg/dL (0.6-1.0); POTASSIUM 3.6 mmol/L (3.5-5.1)
[2016-08-17 07:44] VITALS: BP 115/51
[2016-08-17 08:20] LABS: ABSOLUTE NEUTROPHILS 10.3 thou/uL (1.4-8.2); TOTAL CELL COUNT 100
[2016-08-17 08:27] LABS: ANISOCYTOSIS 1+; OVALOCYTES FEW; POLYCHROMASIA OCCASIONAL
[2016-08-17 08:28] LABS: MICROCYTES FEW
[2016-08-17 20:00] VITALS: BP 128/58
[2016-08-18] VITALS (8 sets, daily range): BP systolic 138–209; BP diastolic 52–97
[2016-08-18 06:39] LABS: ALBUMIN 1.5 g/dL (3.4-5.0); CALCIUM 7.4 mg/dL (8.5-10.1); PHOSPHORUS 4.1 mg/dL (2.5-4.9); POTASSIUM 3.4 mmol/L (3.5-5.1)
[2016-08-18 06:43] LABS: CREATININE 2.3 mg/dL (0.6-1.0)
[2016-08-19 03:30] VITALS: BP 136/87
[2016-08-19 05:37] LABS: HEMATOCRIT 32.3 % (37.0-47.0); MCH 24.9 pg (26.0-34.0); MCHC 32.4 g/dL (28.0-37.0); MCV 76.9 fL (80.0-100.0); RBC 4.2 mil/uL (4.20-5.00); RDW 18.4 % (10.5-14.5); WBC 16.7 thou/uL (4.0-11.0)
[2016-08-19 05:48] LABS: HEMOGLOBIN 10.5 gm/dL (12.0-15.0)
[2016-08-19 05:52] LABS: ALBUMIN 1.6 g/dL (3.4-5.0); CALCIUM 7.8 mg/dL (8.5-10.1); CREATININE 1.8 mg/dL (0.6-1.0); PHOSPHORUS 3.3 mg/dL (2.5-4.9); POTASSIUM 3.6 mmol/L (3.5-5.1)
[2016-08-19 07:43] VITALS: BP 144/77
[2016-08-19 15:39] VITALS: BP 147/68
[2016-08-19 19:30] VITALS: BP 155/104
[2016-08-20] VITALS (19 sets, daily range): BP systolic 116–173; BP diastolic 58–95
[2016-08-20 06:14] LABS: ALBUMIN 1.7 g/dL (3.4-5.0); CALCIUM 7.6 mg/dL (8.5-10.1); CREATININE 1.5 mg/dL (0.6-1.0); PHOSPHORUS 2.5 mg/dL (2.5-4.9); POTASSIUM 3.6 mmol/L (3.5-5.1)
[2016-08-21] VITALS (14 sets, daily range): BP systolic 98–135; BP diastolic 47–89
[2016-08-21 03:10] LABS: HEMATOCRIT 32.5 % (37.0-47.0); HEMOGLOBIN 10.4 gm/dL (12.0-15.0); MCH 24.9 pg (26.0-34.0); MCHC 32.1 g/dL (28.0-37.0); MCV 77.4 fL (80.0-100.0); RBC 4.2 mil/uL (4.20-5.00); RDW 18.6 % (10.5-14.5); WBC 19.1 thou/uL (4.0-11.0)
[2016-08-21 03:20] LABS: ALBUMIN 1.6 g/dL (3.4-5.0); CALCIUM 7.7 mg/dL (8.5-10.1); CREATININE 1.5 mg/dL (0.6-1.0); PHOSPHORUS 3.5 mg/dL (2.5-4.9); POTASSIUM 3.7 mmol/L (3.5-5.1)
[2016-08-22 05:02] LABS: HEMATOCRIT 31.1 % (37.0-47.0); MCH 25.2 pg (26.0-34.0); MCHC 32.2 g/dL (28.0-37.0); MCV 78.3 fL (80.0-100.0); PLATELET COUNT 253 thou/uL (150-400); RBC 3.98 mil/uL (4.20-5.00); RDW 18.5 % (10.5-14.5); WBC 20.1 thou/uL (4.0-11.0)
[2016-08-22 05:15] LABS: MANUAL DIFF YES
[2016-08-22 05:18] LABS: ALBUMIN 1.5 g/dL (3.4-5.0); ANION GAP 8 mmol/L (7-16); BUN 34 mg/dL (7-18); CALCIUM 7.5 mg/dL (8.5-10.1); CHLORIDE 99 mmol/L (98-107); CO2 31 mmol/L (21-32); CREATININE 1.4 mg/dL (0.6-1.0); GLUCOSE 92 mg/dL (74-106); PHOSPHORUS 3.3 mg/dL (2.5-4.9); POTASSIUM 3.8 mmol/L (3.5-5.1); SODIUM 138 mmol/L (136-145); TROPONIN-I < 0.04 ng/mL (<0.04-0.07)
[2016-08-22 05:22] VITALS: BP 142/68
[2016-08-22 06:27] LABS: ABSOLUTE NEUTROPHILS 18.1 thou/uL (1.4-8.2); ANISOCYTOSIS 2+; HYPOCHROMASIA 2+; MICROCYTES 2+; TOTAL CELL COUNT 100
[2016-08-22 06:28] LABS: POLYCHROMASIA OCCASIONAL
[2016-08-22 07:25] VITALS: BP 132/64
[2016-08-22 15:50] VITALS: BP 105/51
[2016-08-22 21:00] VITALS: BP 131/61
[2016-08-23 04:47] LABS: HEMATOCRIT 29.7 % (37.0-47.0); HEMOGLOBIN 9.4 gm/dL (12.0-15.0); MCH 25.2 pg (26.0-34.0); MCHC 31.8 g/dL (28.0-37.0); MCV 79.1 fL (80.0-100.0); RBC 3.75 mil/uL (4.20-5.00); RDW 18.6 % (10.5-14.5); WBC 14.2 thou/uL (4.0-11.0)
[2016-08-23 04:56] VITALS: BP 136/54
[2016-08-23 04:56] LABS: ALBUMIN 1.4 g/dL (3.4-5.0); CALCIUM 7.3 mg/dL (8.5-10.1); CREATININE 1.3 mg/dL (0.6-1.0); PHOSPHORUS 3.1 mg/dL (2.5-4.9); POTASSIUM 3.6 mmol/L (3.5-5.1)
[2016-08-23 07:24] VITALS: BP 127/67
[2016-08-23 16:13] VITALS: BP 128/55
[2016-08-23 19:45] VITALS: BP 125/57
[2016-08-24 04:13] VITALS: BP 128/49
[2016-08-24 05:20] LABS: HEMATOCRIT 29.4 % (37.0-47.0); HEMOGLOBIN 9.5 gm/dL (12.0-15.0); MCH 25.5 pg (26.0-34.0); MCHC 32.2 g/dL (28.0-37.0); MCV 79.1 fL (80.0-100.0); RBC 3.72 mil/uL (4.20-5.00); RDW 18.6 % (10.5-14.5); WBC 12.6 thou/uL (4.0-11.0)
[2016-08-24 05:43] LABS: ALBUMIN 1.4 g/dL (3.4-5.0); CALCIUM 7.3 mg/dL (8.5-10.1); CREATININE 1.4 mg/dL (0.6-1.0); PHOSPHORUS 2.8 mg/dL (2.5-4.9); POTASSIUM 3.4 mmol/L (3.5-5.1)
[2016-08-24 15:40] VITALS: BP 128/57
[2016-08-24 20:00] VITALS: BP 122/50
[2016-08-25 05:00] VITALS: BP 106/43
[2016-08-25] MEDS ORDERED: CARDIZEM CD 18180 M3 PO (08:48)
[2016-08-25] MEDS ORDERED: ASPIRIN325 PO (08:48)
[2016-08-25] MEDS ORDERED: AUGMENTIN 875875 MG PO (08:48)
[2016-08-25] MEDS ORDERED: ACETAMINOPHEN325 M1 PO (08:49)
[2016-08-25] MEDS ORDERED: MIRALAX17 GM PO (08:49)
[2016-08-25] MEDS ORDERED: HYDROCODON-ACE1 EAC7 PO (08:49)
[2016-08-25] MEDS ORDERED: SENOKOT-S1 TA1 PO (08:49)
== END 2016-08-25 16:22 | DRG 483 ==
LOC: 3N 09:23 → ICU 08-20 15:22 → 4E 08-21 11:23
PROVIDERS: Hospitalist; Internal Medicine Nephrology; Internal Medicine Pulmonary Disease; Nurse Practitioner
PROC: 0RRK0J6 Replacement of Left Shoulder Joint with Synthetic Substitute, Humeral Surface, Open Approach (ICD-10-PCS; principal; 2016-08-20)
DX: S42.252A Displaced fracture of greater tuberosity of left humerus, initial encounter for closed fracture (principal); N17.0 Acute kidney failure with tubular necrosis; E43 Unspecified severe protein-calorie malnutrition; J96.01 Acute respiratory failure with hypoxia; E87.1 Hypo-osmolality and hyponatremia; J18.2 Hypostatic pneumonia, unspecified organism; Z68.41 Body mass index [BMI] 40.0-44.9, adult; I10 Essential (primary) hypertension; I48.0 Paroxysmal atrial fibrillation; F41.9 Anxiety disorder, unspecified; E78.00 Pure hypercholesterolemia, unspecified; E03.9 Hypothyroidism, unspecified; E87.5 Hyperkalemia; D64.9 Anemia, unspecified; I49.5 Sick sinus syndrome; E86.0 Dehydration; K59.00 Constipation, unspecified; H91.90 Unspecified hearing loss, unspecified ear; I95.9 Hypotension, unspecified; N26.1 Atrophy of kidney (terminal); E78.5 Hyperlipidemia, unspecified; W10.8XXA Fall (on) (from) other stairs and steps, initial encounter; Y93.89 Activity, other specified; Y92.098 Other place in other non-institutional residence as the place of occurrence of the external cause; Y99.8 Other external cause status; Z90.710 Acquired absence of both cervix and uterus; Z88.1 Allergy status to other antibiotic agents; Z80.8 Family history of malignant neoplasm of other organs or systems; Z82.49 Family history of ischemic heart disease and other diseases of the circulatory system
CPT/HCPCS: 10078; 10096; 10183; 23012; 50010; 50101; 50386; 50417; 50733; 50935; 51130; 51225; 51412; 51771; 53000; 55430; 55435; 56525; 56526; 56527; 56530; 62110; 62900; 70005

== ENCOUNTER 2016-10-16 21:20 | Inpatient (IN) | payer OTHER, BC ==
[~2016-10-16] VITALS: Ht 162.6 cm; Wt 96.2 kg
--- NOTE | ~2016-10-16 | O ---
[facility] [place] [address] OPERATIVE REPORT Name: KIAH HOOD Room #: 435-P [facility] IN M.R.#: [id number] Admission: 10/16/16 Attend Phys: Alexander Bolaños MD Discharge: Date of : 29 Report #: [id number] THIS REPORT FOR: //name// CC: Alexander Hernandez DATE OF SERVICE: 10/18/2016 PREOPERATIVE DIAGNOSES: 1. Acute cholecystitis. 2. Possible posterior wall gallbladder mass. 3. Possible choledocholithiasis. POSTOPERATIVE DIAGNOSES: 1. Severe acute cholecystitis with inability to visualize the gallbladder. 2. Possible posterior wall gallbladder mass. 3. Possible choledocholithiasis. 4. Marked intra-abdominal adhesions in the right upper quadrant. PROCEDURES PERFORMED: Extensive laparoscopic lysis of adhesions. SURGEON: Patricia Gardner MD WASHERY BOSS: Blayne Good MD ANESTHESIA: General endotracheal anesthesia. ESTIMATED BLOOD LOSS: Minimal (less than 5 mL). COMPLICATIONS: None appreciated. SPECIMENS: None. INDICATIONS: The patient is an 86-year-old female who has a few week history of intermittent right upper quadrant abdominal pain and nausea with bloating that was known to wax and wane. Unfortunately, the patient's symptoms worsened acutely in the morning 2 days ago for which she presented for evaluation. The patient was found to have thickening of the gallbladder wall, especially posteriorly as well as having pericholecystic fluid and a dilated common bile duct to 12 mm. Interestingly, the patient's gallbladder wall thickening was not symmetric and was only on the posterior wall, but nonetheless, indication was for definitive surgical management with laparoscopic cholecystectomy today. Unfortunately, there was such intense inflammation in the right upper quadrant that even after performing a lengthy laparoscopic lysis of adhesions to get numerous loops of bowel freed from the right upper quadrant, we were still unable to visualize the gallbladder. [address] [address] OPERATIVE REPORT Name: KIAH HOOD VITALE Room #: 435-P [facility] IN [facility].#: [id number] Admission: 10/16/16 Attend Phys: Alexander Bolaños MD Discharge: Date of : 29 Report #: [id number] PROCEDURE: After explaining the risks, benefits, and alternatives of the procedure with the patient in detail in the preoperative holding area and obtaining written consent, the patient was brought to the operating room and placed supine on the operating room table. After conducting a thorough timeout procedure, verifying correct patient and procedure, the patient was given general endotracheal anesthesia. Once adequate anesthesia was obtained, SCDs were placed on the patient's bilateral lower extremities and she was given a preoperative dose of antibiotics in line with the SCIP protocol as she was already on an inpatient regimen for her acute cholecystitis. The patient's abdomen was now prepped and draped in standard surgical sterile fashion. 5 mL of 0.5% Marcaine with epinephrine were used to anesthetize the skin in the supraumbilical location. A #15 bladed scalpel was used to create a 1-cm transverse skin incision at this location. An 11-mm Visiport was placed over 0-degree 5-mm laparoscope and was introduced through this incision site. Once intraabdominal placement was verified visually, the obturator for the trocar and laparoscope were both removed and the abdomen was insufflated to 15 mmHg using carbon dioxide gas. The laparoscope was changed to a 10-mm 30-degree laparoscope, which was reintroduced through this trocar. The entire abdomen was evaluated to ensure no injury upon entry. I now proceeded to place the patient in reverse Trendelenburg position with right side elevated and placed 3 additional 5-mm trocars. One was placed in subxiphoid location and two were placed along the patient's right subcostal margin. All three additional 5-mm ports were placed under direct vision after anesthetizing the skin at each location with 5 mL of 0.5% Marcaine with epinephrine and I had created small skin nicks using #15 bladed scalpel. We now turned our attention towards attempts at identifying the gallbladder. There were marked adhesions in the right upper quadrant of omentum, loops of small bowel, duodenum and the hepatic flexure of the colon intimately plastered to not only the underside of the right lobe of the liver, but also up over the dome of the liver. After carrying out a lengthy laparoscopic lysis of adhesions using Harmonic scalpel and blunt dissection with the suction dairy farmer device, we were able to safely freed the loops of small-bowel that were impending small-bowel obstruction and we were able to sweep those in the lower pelvis. No injury was seen to the small-bowel whatsoever. Attempts at evaluating the right upper quadrant at this juncture showed that the hepatic flexure of the colon was intimately welded to the liver as well as the duodenum and we were absolutely unable to visualize even the dome of the gallbladder. With the preoperative findings of asymmetric inflammation on the posterior wall of the gallbladder concerning for possible mass versus an abnormal appearance of just acute cholecystitis, I elected at this juncture to back out and undergo percutaneous cholecystostomy tube placement by interventional radiology in a transhepatic location as the back wall is the only area to access the gallbladder. As such, the laparoscope was removed, changed to a 5-mm 30-degree laparoscope, which was reintroduced through the right midclavicular 5 mm trocar. The supraumbilical trocar was removed and the fascial incision was closed using 0 PDS suture on a [facility] [address] [place] [address] OPERATIVE REPORT Name: KIAH HOOD Room #: 435-P [facility] IN ..#: [id number] Admission: 10/16/16 Attend Phys: Alexander Bolaños MD Discharge: Date of : 29 Report #: [id number] Americo-Vick needle under direct vision. This was tied down under direct vision. The abdomen was now fully desufflated. All ports were removed under direct vision. A 4-0 Monocryl was used in a standard subcuticular fashion for all skin incisions and Dermabond glue was applied to all skin wounds. At the end of the procedure, all instrument, needle and sponge counts were correct. The patient tolerated the procedure without incident, was awakened in the operating room, transitioned to the recovery room in stable condition with no apparent complications. <ELECTRONICALLY SIGNED> By: Patricia Gardner MD, FACS 10/19/16 1540 1301 1411 Patricia Gardner MD, FACS /nt
--- NOTE | ~2016-10-16 | HC ---
[facility] [place] [address] CONSULTATION Name: KIAH HOOD Room #: 435-P ADM IN M.R.#: [id number] Admission: 10/16/16 Attend Phys: Alexander Bolaños MD Discharge: Date of : 29 Report #: [id number] THIS REPORT FOR: //name// CC: Alexander Hernandez DATE OF SERVICE: 10/17/2016 REFERRING PROVIDER: Damaso Skelton MD. REASON FOR CONSULT: Abdominal pain. HISTORY OF PRESENT ILLNESS: The patient is an 86-year-old female who has had a few week history of intermittent right upper quadrant abdominal pain and nausea as well as bloating that worsened acutely yesterday morning. The patient states the pain started in the right upper quadrant to the right lower chest and traverse through into her back and as such she presented for evaluation. The patient was recently admitted here to [facility] for acute renal failure, constipation and respiratory failure with aspiration pneumonia. She did sustain a right arm fracture and has been undergoing rehabilitative efforts. As the patient has been readmitted in transfer from [place], she did undergo a thorough workup there with an ultrasound of the abdomen as well as CT scan of the abdomen and pelvis and laboratories. The patient's CT scan showed questionable thickening to the gallbladder and a followup ultrasound confirmed mild gallbladder wall thickening with pericholecystic fluid as well as a markedly dilated common bile duct to 12 mm. The patient has since been admitted, been asked to evaluate. Of note, the patient's lipase was slightly elevated at 380 on the outside labs. PAST MEDICAL HISTORY: Hypothyroidism, CHF, hyperlipidemia, hypertension, atrial fibrillation, anxiety, uterine cancer, and constipation. PAST SURGICAL HISTORY: She has undergone hysterectomy, tonsillectomy, appendectomy, , bilateral tubal ligation and heart monitor. HOME MEDICATIONS: Iron, Lipitor, atenolol, diltiazem, aspirin, Lexapro, Xanax, Ambien, Lasix, MiraLax, senna, and Synthroid. ALLERGIES: LEVAQUIN, which causes hives. FAMILY HISTORY: Reviewed and noncontributory. SOCIAL HISTORY: The patient does not utilize tobacco, alcohol or illicit drugs. REVIEW OF SYSTEMS: GENERAL: The patient denies nocturnal fevers or chills. [address] [address] CONSULTATION Name: KIAH HOOD Room #: 435-P [facility] IN M.R.#: [id number] Admission: 10/16/16 Attend Phys: Alexander Bolaños MD Discharge: Date of : 29 Report #: [id number] HEENT: No change in vision, change in hearing. NECK: No swelling or difficulty swallowing. HEART: No chest pain, palpitations. LUNGS: No cough or shortness of breath. ABDOMEN: Abdominal pain with mild nausea, but no vomiting. GENITOURINARY: No dysuria or hematuria. ENDOCRINE: No polyuria, polydipsia. HEMATOLOGIC: No history of bleeding or easy bruising. EXTREMITIES: No history of weakness or limited range of motion. NEUROLOGIC: No history of syncope or near syncopal episodes. SKIN AND INTEGUMENT: No history of abnormal lesions or moles. PSYCHIATRIC: No history of anxiety or depression. PHYSICAL EXAMINATION: VITAL SIGNS: Temperature 98.7, pulse 85, respirations 20, blood pressure 121/56. She stands 5 feet 4 inches tall and weighs 212 pounds. Generally alert and oriented, in no acute distress. HEENT: Normocephalic, atraumatic. Pupils equal, round, reactive to light. NECK: Supple, without lymphadenopathy. Trachea midline. HEART: Regular rate and rhythm. LUNGS: Clear to auscultation bilaterally. ABDOMEN: Soft, nondistended, mildly tender to palpation in the right upper quadrant with deep palpation, but no guarding or rebound or peritoneal signs or symptoms. GENITOURINARY: Normal external female genitalia. EXTREMITIES: No clubbing, cyanosis or edema. NEUROLOGIC: Cranial nerves 2-12 are grossly intact. PSYCHIATRIC: Normal mood and affect. SKIN AND INTEGUMENT: No abnormal lesions or moles. LABORATORY AND X-RAY DATA: CBC showed white blood cell count 14.1 thousand, hemoglobin 11.4, platelets 326,000. Creatinine was 1.2, AST 270, ALT 131, alkaline phosphatase 527 with 380 on her lipase. Troponin is negative. BNP is 1987, albumin 2.4. CT scan of the abdomen and pelvis as well as ultrasound as per HPI showed dilated common bile duct with gallbladder wall thickening posteriorly. ASSESSMENT AND PLAN: An 86-year-old female with a dilated common bile duct as well as elevated liver function enzymes concerning for acute cholecystitis and possibly even choledocholithiasis. At this time, I have discussed the patient's care with Dr. Damaso Skelton of the gastroenterology service and due to my suspicions of acute cholecystitis, we will proceed to the operating room at the first available opportunity for laparoscopic cholecystectomy, whereby we will shoot a cholangiogram intraoperatively to ensure the common bile duct itself was clear of any debris. She may necessitate a postoperative ERCP and this was discussed with [address] [address] CONSULTATION Name: KIAH HOOD Room #: 435-P ADM IN M.R.#: [id number] Admission: 10/16/16 Attend Phys: Alexander Bolaños MD Discharge: Date of : 29 Report #: [id number] Nafisa as well. I sincerely appreciate this consult. I will follow closely and leave any further recommendations in the patient's chart as appropriate. <ELECTRONICALLY SIGNED> By: Patricia Gardner MD, FACS 10/18/16 0806 1522 [id number] Patricia Gadrner MD, FACS /nt
--- NOTE | ~2016-10-16 | CNG ---
[facility] [place] [address] CYTO-NONGYN REPORT PROCEDURE Name: KIAH HOOD Room #: 435-P ADM IN M.R.#: [id number] Admission: 10/16/16 Date of : 28 Discharge: Report #: [id number] Path Case #: [id number] CYTOPATHOLOGY REPORT COLLECTION DATE: 10/18/2016 RECEIVED DATE: 10/19/2016 SUBMITTING PHYS: Dr. Patricia Gardner OTHER PHYS: Dr. Alexander Hernandez CLINICAL HISTORY: RUQ pain. SPECIMEN(S) RECEIVED: A.Fluid, Gallbladder * * * * * * * * * * * * FINAL DIAGNOSIS: A. Fluid, Gallbladder: - No malignant epithelial cells identified. No convincing epithelial cells with cellular degeneration present. Paucicellular specimen with acute inflammatory background. PATHOLOGIST: Analilia Correa M.D. REPORT ELECTRONICALLY SIGNED BY: Analilia Corera M.D. DATE/TIME: 10/20/2016 15:09 * * * * * * * * * * * * GROSS PATHOLOGY: A. Fluid, Gallbladder: The specimen is submitted unfixed, labeled "Kiah Hood". Received by the Cytology Department is 5 mL of cloudy green fluid. One ThinPrep slide was prepared. (clt 10.19.2016) MANAGER GLOBAL(S): FATOU Garcia([facility] INITIAL CPT CODE(S): A; 32863 Professional services performed by [facility] at [facility] [address], [place] [address] Technical services performed by [facility] at [address] [place] [address]., [address], [place] [address]. [facility] [address] [place] [address], [address] [place] [address] [facility] [address] [place] [address] CYTO-NONGYN REPORT PROCEDURE Name: HOOD,KIAHSunny VITALE Room #: 435-P ADM IN M.R.#: [id number] Admission: 10/16/16 Date of : 29 Discharge: Report #: [id number] Path Case #: [id number] PHONE: [phone] DIRECTOR: Mason Barrera M.D. * * * END OF REPORT * * *
--- NOTE | ~2016-10-16 | HC ---
[facility] [place] [address] CONSULTATION Name: KIAH HOOD Room #: 435-P ADM IN M.R.#: [id number] Admission: 10/16/16 Attend Phys: Concepcion Mahoney Discharge: Date of : 29 Report #: [id number] THIS REPORT FOR: //name// CC: Alexander Hernandez MD DATE OF SERVICE: 10/17/2016 HISTORY OF PRESENT ILLNESS: The patient is an 86-year-old female, began having nausea and right upper quadrant abdominal pain yesterday and went to [facility] Emergency Room for further evaluation. Routine labs showed a white count of 14,000, LFTs were elevated with a bilirubin of 1.1, AST 270, ALT 131, alkaline phosphatase 527. She denies any fevers or chills. The pain also radiated to her back. An ultrasound of the abdomen showed wall thickening of the gallbladder with biliary sludge, which could be seen with cholecystitis. There was focal wall thickening in the posterior mid aspect of the gallbladder, may represent nonmobile sludge. On the ultrasound, the extrahepatic bile duct was dilated at [address] scan of the abdomen and pelvis also performed yesterday, which showed gallbladder was mildly distended. The wall was ill defined with minimal induration adjacent to the fundus, mild wall thickening of the rectum noted, diverticulosis at the distal colon without evidence of diverticulitis. The patient was started on IV Zosyn. Today, she is feeling better. She remains n.p.o. at this time. No previous history of liver disease. Last colonoscopy was approximately 5 years ago, reportedly negative. She denies any family history of colon cancer. PAST MEDICAL HISTORY: Hypothyroidism, possible congestive heart failure. MEDICATIONS ON ADMISSION: Synthroid, aspirin, atenolol, Lasix, Vicodin p.r.n., ipratropium and albuterol, , alprazolam, Lexapro, meclizine. It appears she was given 1 dose of IV Zosyn. SOCIAL HISTORY: She denies any tobacco or alcohol use. REVIEW OF SYSTEMS: As per HPI. FAMILY HISTORY: Negative for colon cancer. PHYSICAL EXAMINATION: VITAL SIGNS: Temperature is 96.4, pulse 68, blood pressure 119/77, respiratory rate 20. GENERAL: She is alert and oriented times 3 in no acute distress. HEENT: Sclerae nonicteric. Oropharynx clear. NECK: Supple, [place] [address] CONSULTATION Name: KIAH HOOD Room #: [facility] IN M.R.#: [id number] Admission: 10/16/16 Attend Phys: Concepcion Mahoney Discharge: Date of : 29 Report #: [id number] CARDIOVASCULAR: Regular rate. CHEST: Clear to auscultation anteriorly bilaterally. ABDOMEN: Soft. She is mildly tender to palpation in the right upper quadrant, nondistended, normoactive bowel sounds. EXTREMITIES: +1 pitting edema to the lower extremities bilaterally. LABORATORY DATA: There are no new labs here as of yet, although they have been drawn. Labs from [facility] yesterday, WBC is 14.1, hemoglobin 11.4, MCV 88.2, platelet count 362. Sodium 134, potassium 4.2, chloride 99, bicarbonate 28, BUN 15, creatinine 1.2, total bilirubin is 1.1, AST is 270, ALT 131, alkaline phosphatase 527. Troponin 0.021, albumin 2.4, lipase is 380. ASSESSMENT AND PLAN: Right upper quadrant abdominal pain with elevated liver function tests. Ultrasound and CT showed thickened gallbladder wall with sludge within the gallbladder. Also, nonmobile sludge or focal inflammatory wall thickening or neoplasm was noted in the gallbladder as well. I suspect the patient has cholecystitis. She does have an elevated WBC. Her common bile duct is dilated at 12 mm; however, bilirubin as of yesterday was 1.1, which was essentially normal. She does have a mild elevation in her lipase as well. I would recommend proceeding with a General Surgery consultation, obviously need to follow and monitor her labs closely. Her repeat labs have been drawn but are pending at this time. I suspect she needs to be placed on IV antibiotics and consider laparoscopic cholecystectomy. An intraoperative cholangiogram could be performed at that time. If there is evidence of stones or sludge within the common bile duct, then an ERCP may be warranted. May consider a PIPIDA scan today as well. We will discuss further with General Surgery. Thank you for allowing me to participate in her care. <ELECTRONICALLY SIGNED> By: Damaso Skelton MD 10/21/16 0816 1058 1808 Damaso Skelton MD /nt
--- NOTE | ~2016-10-16 | H ---
[facility] [place] [address] HISTORY AND PHYSICAL Name: KIAH HOOD Room #: 435-P ADM IN M.R.#: [id number] Admission: 10/16/16 Attend Phys: Alexander Bolaños MD Discharge: Date of : 29 Report #: [id number] THIS REPORT FOR: //name// CC: Alexander Hernandez DATE OF SERVICE: 10/17/2016 ATTENDING PHYSICIAN: Alexander Bolaños M.D. PRIMARY CARE PHYSICIAN: Robert Hernandez M.D. CHIEF COMPLAINT: Right upper quadrant abdominal pain and some chest pain. HISTORY OF PRESENT ILLNESS: The patient is an 86-year-old female who was initially hospitalized at [facility] this morning. She says this morning after making breakfast and eating some, she developed a fairly sudden right-sided chest pain that seemed to radiate around to her left shoulder. She denies any history of heart disease, denies any history of blood clots. She has never had this thing happen to her and her family. She had recently been admitted here at [facility] in August of this year for acute renal failure as well as constipation and respiratory failure. She ended up getting aspiration pneumonia and was eventually sent to rehab on the . Also during that August admission, she had been admitted for a fall as well and did sustain a right arm . She spent a total of 6 weeks in rehabilitation and is now back at home where her niece has been living with her. She is now getting around with a walker and is using physical therapy with home health. PAST MEDICAL HISTORY: Hypothyroidism, congestive heart failure with a normal EF, hyperlipidemia, hypertension, atrial fibrillation, anxiety, uterine cancer and constipation. PAST SURGICAL HISTORY: Hysterectomy, tonsillectomy, appendectomy, C section, bilateral tubal ligation and implanted heart monitor. ALLERGIES: LEVAQUIN causes hives. HOME MEDICATIONS: Iron tablet daily, Lipitor 40 mg daily, atenolol 50 mg p.o. daily, diltiazem 180 mg p.o. daily, aspirin 325 mg p.o. daily, Lexapro 10 mg p.o. daily, Xanax 0.25 mg p.o. at bedtime, Ambien p.r.n., Lasix 20 mg p.o. b.i.d. for swelling, MiraLax 17 g p.o. daily, Senna 1 tab at bedtime and levothyroxine 0.112 mg p.o. daily. SOCIAL HISTORY: The patient denies any tobacco or alcohol use. She lives at home by herself normally, but her niece is planning on staying with her since she needs some help getting around. Continue [place] [address] HISTORY AND PHYSICAL Name: KIAH HOOD Room #: 435-P [facility] IN .R.#: [id number] Admission: 10/16/16 Attend Phys: Alexander Bolaños MD Discharge: Date of : 29 Report #: [id number]. FAMILY HISTORY: Significant for heart disease, cancer and vascular. REVIEW OF SYSTEMS: A 12-point review of systems was reviewed with the patient and otherwise negative unless stated in the HPI. PHYSICAL EXAMINATION: GENERAL: The patient is an alert female, in no acute distress. LABORATORY AND DIAGNOSTIC DATA: Labs done at [facility] showed a WBC of 14.1, hemoglobin of 11.4 and platelets are 326. Sodium 134, potassium 4.2, BUN 15, creatinine 1.2 and glucose is 134. Bilirubin 1.1, AST is 270, ALT 131 and alkaline phosphatase 527. Troponin is negative. BNP is 1987. Albumin 2.4. Lipase is 380. Urinalysis showed mild leukocyte esterase, wbc's are 2-5 and few bacteria. EKG showing sinus tachycardia. CT of the abdomen showed a mildly distended gallbladder with atherosclerotic disease of the aorta, and there is mild intralobar septal thickening suggesting mild interstitial edema. There are trace bilateral pleural effusions or pleural thickening. Also, gallbladder is mildly distended. There is an ill-defined are with minimal induration adjacent to the fundus. There is mild wall thickening of the rectum, cannot exclude mild nonspecific proctitis, and there is moderate distal colon diverticulosis without evidence of diverticulitis. Ultrasound shows a distended common bile duct with possible mass in gallbladder, and chest x-ray shows mild bibasilar atelectasis or scarring. ASSESSMENT AND PLAN: 1. Biliary obstruction. Ultrasound does show that her common bile duct is dilated, and there is a possible mass versus sludge in the ducts. We will have gastroenterology consulted for a possible ERCP. Continue with Zosyn, pain control, antiemetics and IV fluids. We will keep her n.p.o. for now. 2. Transaminitis likely related to obstructive pathology. We will have gastroenterology address and follow trends. 3. Hypothyroidism. Continue Synthroid when able. 4. Hyperlipidemia. Blood pressure is elevated. Add hydralazine p.r.n. 5. Atrial fibrillation. She is rate controlled, not on any anticoagulation. 6. Deep venous thrombosis prophylaxis. Place sequential compression devices. [facility] [address] [place] [address] HISTORY AND PHYSICAL Name: KIAH HOOD Room #: 435-P ADM IN [facility]#: [id number] Admission: 10/16/16 Attend Phys: Alexander Bolaños MD Discharge: Date of : 29 Report #: [id number] We will continue to follow the patient closely throughout the hospitalization and make changes based on clinical status. <ELECTRONICALLY SIGNED> By: NIKI Flores 10/18/16 0721 0656 0835 NIKI Flores /nt
[~2016-10-16 21:20] MED LIST changes: +ACETAMINOPHEN325 M1 PO; +ASPIRIN325 PO; +AUGMENTIN 875875 MG PO; +CARDIZEM CD 18180 M3 PO; +HYDROCODON-ACE1 EAC7 PO; +MIRALAX17 GM PO; +SENOKOT-S1 TA1 PO
[2016-10-16 22:10] VITALS: BP 161/63
[2016-10-17] MEDS ORDERED: CARDIZEM CD180 MG PO (01:07)
[2016-10-17] MEDS ORDERED: TENORMIN50 MG PO (01:08)
[2016-10-17] MEDS ORDERED: LEVOTHYROXIN0.112 M1 PO (01:09)
[2016-10-17] MEDS ORDERED: XANAX 0.25 MG0.25 MG PO (01:11)
[2016-10-17] MEDS ORDERED: LEXAPRO 10 MG T10 M1 PO (01:12)
[2016-10-17] MEDS ORDERED: FE C TABLET1 EACH PO (01:13)
[2016-10-17] MEDS ORDERED: LASIX 20 MG TAB20 MG PO (01:15)
[2016-10-17] MEDS ORDERED: ASPIRIN325 PO (01:17)
[2016-10-17] MEDS ORDERED: LIPITOR 20 MG T20 M1 PO (01:18)
[2016-10-17] MEDS ORDERED: SENOKOT-S1 TA1 PO (01:22)
[2016-10-17 03:00] VITALS: BP 121/56
[2016-10-17 08:00] VITALS: BP 121/56; BP 148/55
[2016-10-17 16:00] VITALS: BP 116/40
[2016-10-17 20:05] VITALS: BP 149/55
[2016-10-18 04:12] LABS: HEMATOCRIT 29.7 % (37.0-47.0); HEMOGLOBIN 9.7 gm/dL (12.0-15.0); MCH 28.1 pg (26.0-34.0); MCHC 32.6 g/dL (28.0-37.0); MCV 86.1 fL (80.0-100.0); RBC 3.45 mil/uL (4.20-5.00); WBC 8.5 thou/uL (4.0-11.0)
[2016-10-18 04:28] LABS: ALBUMIN 1.7 g/dL (3.4-5.0); CALCIUM 7.9 mg/dL (8.5-10.1); CREATININE 1.2 mg/dL (0.6-1.0); POTASSIUM 3.8 mmol/L (3.5-5.1); TOTAL BILIRUBIN 0.7 mg/dL (<0.1-1.0)
[2016-10-18 04:30] VITALS: BP 141/58
[2016-10-18 08:00] VITALS: BP 149/61
[2016-10-18 16:30] VITALS: BP 151/67
[2016-10-18 19:22] VITALS: BP 140/61
[2016-10-19 04:31] VITALS: BP 149/71
[2016-10-19 05:33] LABS: HEMATOCRIT 35.1 % (37.0-47.0); HEMOGLOBIN 11.2 gm/dL (12.0-15.0); MCH 27.7 pg (26.0-34.0); MCHC 31.9 g/dL (28.0-37.0); MCV 86.9 fL (80.0-100.0); RBC 4.04 mil/uL (4.20-5.00); RDW 21.4 % (10.5-14.5); WBC 12.2 thou/uL (4.0-11.0)
[2016-10-19 06:03] LABS: ALBUMIN 2.1 g/dL (3.4-5.0); CALCIUM 8.3 mg/dL (8.5-10.1); CREATININE 1.4 mg/dL (0.6-1.0); DIRECT BILIRUBIN 0.2 mg/dL (<0.1-0.3); TOTAL BILIRUBIN 0.6 mg/dL (<0.1-1.0)
[2016-10-19 07:54] VITALS: BP 149/58
[2016-10-19 16:47] VITALS: BP 145/72
[2016-10-19 19:35] VITALS: BP 158/70
[2016-10-20 05:56] VITALS: BP 146/58
[2016-10-20 06:10] LABS: HEMATOCRIT 31.7 % (37.0-47.0); HEMOGLOBIN 10.1 gm/dL (12.0-15.0); MCH 27.9 pg (26.0-34.0); MCHC 31.9 g/dL (28.0-37.0); MCV 87.2 fL (80.0-100.0); RBC 3.63 mil/uL (4.20-5.00); RDW 21.4 % (10.5-14.5); WBC 9.9 thou/uL (4.0-11.0)
[2016-10-20 06:32] LABS: CALCIUM 8.4 mg/dL (8.5-10.1); CREATININE 1.3 mg/dL (0.6-1.0); POTASSIUM 3.7 mmol/L (3.5-5.1); TOTAL BILIRUBIN 0.4 mg/dL (<0.1-1.0); TOTAL PROTEIN 5.7 g/dL (6.4-8.2)
[2016-10-20 08:00] VITALS: BP 146/45
[2016-10-20 16:00] VITALS: BP 129/44
[2016-10-20 19:25] VITALS: BP 149/57
[2016-10-21 03:30] VITALS: BP 122/55
[2016-10-21 07:37] VITALS: BP 145/59
[2016-10-21] MEDS ORDERED: AUGMENTIN 875875 MG PO (09:47)
[2016-10-21 09:58] VITALS: BP 145/59
[2016-10-21 10:00] VITALS: BP 145/59
[2016-10-21] MEDS ORDERED: TRAMADOL 50 MG50 MG PO (10:32)
== END 2016-10-21 10:44 | disposition home health service (06) | DRG 335 ==
LOC: 4S 21:20
PROVIDERS: Hospitalist; Nurse Practitioner Acute Care; Surgery
PROC: 0F9430Z Drainage of Gallbladder with Drainage Device, Percutaneous Approach (ICD-10-PCS; principal; 2016-10-18)
PROC: 0DN84ZZ Release Small Intestine, Percutaneous Endoscopic Approach (ICD-10-PCS; principal; 2016-10-18)
DX: K66.0 Peritoneal adhesions (postprocedural) (postinfection) (principal); E43 Unspecified severe protein-calorie malnutrition; K80.43 Calculus of bile duct with acute cholecystitis with obstruction; E03.9 Hypothyroidism, unspecified; I11.0 Hypertensive heart disease with heart failure; I50.9 Heart failure, unspecified; E78.5 Hyperlipidemia, unspecified; R74.0 Nonspecific elevation of levels of transaminase and lactic acid dehydrogenase [LDH]; I48.91 Unspecified atrial fibrillation; F41.9 Anxiety disorder, unspecified; K59.00 Constipation, unspecified; Z90.49 Acquired absence of other specified parts of digestive tract; Z90.710 Acquired absence of both cervix and uterus; Z88.1 Allergy status to other antibiotic agents; Z82.49 Family history of ischemic heart disease and other diseases of the circulatory system; Z85.42 Personal history of malignant neoplasm of other parts of uterus; Z80.9 Family history of malignant neoplasm, unspecified; Z79.82 Long term (current) use of aspirin; Z79.899 Other long term (current) drug therapy
CPT/HCPCS: 10100; 50101; 50249; 50411; 50555; 50558; 50962; 51489; 51975; 52265; 53307; 54022; 54118; 55245; 55317; 56462; 56525; 56526; 62110; 62900; 70005

== ENCOUNTER 2016-10-24 01:13 | Inpatient (IN) | payer OTHER, BC ==
[2016-10-24] VITALS (14 sets, daily range): BP systolic 95–173; BP diastolic 43–71
[~2016-10-24] VITALS: Ht 152.4 cm; Wt 95.3 kg
--- NOTE | ~2016-10-24 | HC ---
[facility] [place] [address] CONSULTATION Name: KIAH HOOD Room #: 431-P ADM IN M.R.#: [id number] Admission: 10/24/16 Attend Phys: Tahir Mcgee MD Discharge: Date of : 29 Report #: [id number] THIS REPORT FOR: //name// CC: Tahir Gomez Jj DATE OF SERVICE: 10/27/2016 ATTENDING PHYSICIAN: Sachin Rondon MD. CONSULTATION REQUESTED BY: Tahir Mcgee MD. HISTORY OF PRESENT ILLNESS: An 86-year-old white woman is readmitted through the Emergency Room with right-sided abdominal pain. The patient recently underwent attempted cholecystectomy because of multiple adhesions and the gallbladder could not be removed. The patient required percutaneous drainage of the gallbladder and the tube was replaced later on. The workup included blood cultures. One out of two samples revealed MRSA, ID opinion is requested. She is at present asymptomatic besides right-sided abdominal and chest pain related to the percutaneous drain. PAST MEDICAL HISTORY: Hypertension. History of humeral fracture requiring a hemiarthroplasty by Dr. Rojas, acute cholecystitis, laparoscopic cholecystectomy attempted requiring postponement of surgery and placement of percutaneous catheter. Acute kidney injury that had resolved. History of cardiac arrhythmia, possible requiring permanent pacemaker by Dr. Joseph. DRUG ALLERGIES: LEVOFLOXACIN. MEDICATIONS: The patient is currently on treatment with vancomycin 500 mg IV daily, senna and docusate b.i.d., furosemide 20 b.i.d. p.r.n., alprazolam 0.25 mg at bedtime, Zosyn 3.375 grams IV every 6 hours, citalopram 10 mg daily, atenolol 50 mg daily, diltiazem 180 mg daily, levothyroxine 112 mcg p.o. daily, polyethylene glycol 17 grams daily, p.r.n. ondansetron, p.r.n. morphine sulfate, loading dose of vancomycin 1500 mg. FAMILY HISTORY AND SOCIAL HISTORY: See H and P. REVIEW OF SYSTEMS: As above. PHYSICAL EXAMINATION: GENERAL: Overweight woman, not toxic looking, afebrile since admission. VITAL SIGNS: Temperature 97.9, pulse 60, respirations 16, BP 155/59. Height 5 feet 10 inches, weight 210 pounds. HEENMT: EMT Within range. NECK: [place] [address] CONSULTATION Name: KIAH HOOD Room #: 431-P [facility] IN [facility]#: [id number] Admission: 10/24/16 Attend Phys: Tahir Mcgee MD Discharge: Date of : 29 Report #: [id number] LUNGS: Clear. HEART: S1, S2. ABDOMEN: Right-sided percutaneous cholecystostomy draining bile that appears not turbid. Abdomen mildly tender. PELVIC AND RECTAL: Deferred. EXTREMITIES: Reveal pretibial edema bilaterally. NEUROLOGIC: Grossly within normal limits. LABORATORY DATA: Sodium 138, potassium 3.4, BUN 9, creatinine 1.1, alkaline phosphatase 148, albumin 1.6 g/dL. WBC on admission 12,500, repeat yesterday revealed white blood cell count has dropped to 9800, hemoglobin 9.2 g/dL, platelets 252,000. Urinalysis revealed yeasts. MICROBIOLOGY DATA: Blood cultures x 2 were obtained on 10/24/2016 and one out of two samples revealed gram-positive cocci on 10/25/2016, identified as MRSA today. The MRSA is sensitive to vancomycin with ALISSA of 2 mcg/mL. The urine culture 80,000 colony forming units, genital urethral janet. The repeat blood cultures were obtained today. ASSESSMENT: 1. Single positive blood culture with methicillin resistant Staphylococcus aureus, question significance. 2. Acute cholecystitis status post cholecystostomy. 3. History of left hemiarthroplasty. 4. Chronic kidney disease. 5. Anemia. SUGGESTIONS: Recommend I completely agree with repeating blood cultures x 2. Final recommendation regarding antibiotic - vancomycin dosing pending on repeat culture results. For the time being, must continue with coverage with vancomycin and Zosyn. Dr. Mcgee, thank you for requesting my suggestions in the care of your patient. <ELECTRONICALLY SIGNED> By: Ant Posadas MD 10/28/16 1042 1041 1554 Ant Posadas MD /nt
[~2016-10-24 01:13] MED LIST changes: +CARDIZEM CD180 MG PO; +FE C TABLET1 EACH PO; +LASIX 20 MG TAB20 MG PO; +LEVOTHYROXIN0.112 M1 PO; +LEXAPRO 10 MG T10 M1 PO; +LIPITOR 20 MG T20 M1 PO; +TENORMIN50 MG PO; +TRAMADOL 50 MG50 MG PO; +XANAX 0.25 MG0.25 MG PO
[2016-10-24 02:03] LABS: HEMATOCRIT 35.5 % (37.0-47.0); HEMOGLOBIN 11.3 gm/dL (12.0-15.0); MCH 27.3 pg (26.0-34.0); MCHC 31.9 g/dL (28.0-37.0); MCV 85.7 fL (80.0-100.0); PLATELET COUNT 304 thou/uL (150-400); POLYS 65.5 % (36.0-66.0); RBC 4.14 mil/uL (4.20-5.00); RDW 20.3 % (10.5-14.5); WBC 12.5 thou/uL (4.0-11.0)
[2016-10-24 02:04] LABS: ABSOLUTE NEUTROPHILS 8.2 thou/uL (1.4-8.2); BASOPHILS 0.4 % (0.0-2.0); EOSINOPHILS 2.1 % (0.0-3.0); LYMPHOCYTES 26.2 % (24.0-44.0); MONOCYTES 5.8 % (1.0-8.0)
[2016-10-24 02:07] LABS: MANUAL DIFF NO
[2016-10-24 02:24] LABS: ALBUMIN 2.2 g/dL (3.4-5.0); CREATININE 1.2 mg/dL (0.6-1.0); TOTAL BILIRUBIN 0.3 mg/dL (<0.1-1.0); TOTAL PROTEIN 6.1 g/dL (6.4-8.2)
[2016-10-24 02:26] LABS: POTASSIUM 2.8 mmol/L (3.5-5.1)
[2016-10-25 03:58] VITALS: BP 135/71
[2016-10-25 04:56] LABS: URINE BILIRUBIN NEGATIVE (Negative); URINE BLOOD NEGATIVE (Negative); URINE COLOR YELLOW; URINE GLUCOSE-RANDOM* NEGATIVE (Negative); URINE KETONES NEGATIVE (Negative); URINE LEUKOCYTES-REFLEX TRACE (Negative); URINE PROTEIN (DIPSTICK) 1+ (Negative); URINE SPECIFIC GRAVITY >= 1.030 (1.003-1.035); URINE UROBILINOGEN 0.2 E.U./dl (0.2-1.0)
[2016-10-25 05:34] LABS: SQUAMOUS >10 Many /LPF (0-3)
[2016-10-25 05:35] LABS: CASTS None Seen /LPF (None Seen); URINE WBC-REFLEX 0-5 Rare /HPF (0-5); YEAST-REFLEX Present (None Seen)
[2016-10-25 05:36] LABS: AMORPHOUS URATES Moderate /LPF (None Seen); URINE RBC 0-2 Rare /HPF (0-2)
[2016-10-25 06:26] LABS: HEMATOCRIT 30.8 % (37.0-47.0); MCH 28.1 pg (26.0-34.0); MCHC 32.3 g/dL (28.0-37.0); MCV 86.9 fL (80.0-100.0); RBC 3.55 mil/uL (4.20-5.00); WBC 10.3 thou/uL (4.0-11.0)
[2016-10-25 06:45] LABS: ALBUMIN 1.8 g/dL (3.4-5.0); CALCIUM 8.1 mg/dL (8.5-10.1); POTASSIUM 3.5 mmol/L (3.5-5.1); TOTAL BILIRUBIN 0.4 mg/dL (<0.1-1.0); TOTAL PROTEIN 5.5 g/dL (6.4-8.2)
[2016-10-25 08:00] VITALS: BP 146/54
[2016-10-25 16:00] VITALS: BP 146/51
[2016-10-25 20:26] VITALS: BP 140/58
[2016-10-26 03:44] VITALS: BP 166/66
[2016-10-26 04:56] LABS: HEMATOCRIT 28.7 % (37.0-47.0); HEMOGLOBIN 9.2 gm/dL (12.0-15.0); MCH 27.9 pg (26.0-34.0); MCHC 32.2 g/dL (28.0-37.0); MCV 86.7 fL (80.0-100.0); RBC 3.31 mil/uL (4.20-5.00); RDW 20.1 % (10.5-14.5); WBC 9.8 thou/uL (4.0-11.0)
[2016-10-26 05:16] LABS: ALBUMIN 1.6 g/dL (3.4-5.0); CALCIUM 7.9 mg/dL (8.5-10.1); CREATININE 1.1 mg/dL (0.6-1.0); POTASSIUM 3.4 mmol/L (3.5-5.1); TOTAL BILIRUBIN 0.3 mg/dL (<0.1-1.0); TOTAL PROTEIN 5.1 g/dL (6.4-8.2)
[2016-10-26 09:40] VITALS: BP 150/56
[2016-10-26 15:00] VITALS: BP 142/72
[2016-10-26 20:30] VITALS: BP 144/47
[2016-10-27 04:28] VITALS: BP 140/66
[2016-10-27 07:40] VITALS: BP 155/59
[2016-10-27 15:34] VITALS: BP 166/57
[2016-10-27 19:33] VITALS: BP 155/62
[2016-10-28 04:53] VITALS: BP 132/62
[2016-10-28 07:58] VITALS: BP 155/68
[2016-10-28 12:42] VITALS: BP 155/68
[2016-10-28 16:31] VITALS: BP 158/62
[2016-10-28 20:18] VITALS: BP 194/77
[2016-10-29 00:01] VITALS: BP 137/49
[2016-10-29 03:54] VITALS: BP 145/94
[2016-10-29 08:02] VITALS: BP 180/70
[2016-10-29] MEDS ORDERED: MINOCIN100 MG PO (12:51)
[2016-10-29 14:16] VITALS: BP 155/68
== END 2016-10-29 15:19 | disposition home health service (06) | DRG 444 ==
LOC: ER 01:13 → 4E 04:41 → EROBS 04:41 → 4E 05:16
PROVIDERS: Emergency Medicine; Family Medicine; Hospitalist; Otolaryngology
PROC: 0F9430Z Drainage of Gallbladder with Drainage Device, Percutaneous Approach (ICD-10-PCS; principal; 2016-10-24)
DX: K81.0 Acute cholecystitis (principal); E43 Unspecified severe protein-calorie malnutrition; I13.0 Hypertensive heart and chronic kidney disease with heart failure and stage 1 through stage 4 chronic kidney disease, or unspecified chronic kidney disease; R78.81 Bacteremia; Z68.41 Body mass index [BMI] 40.0-44.9, adult; F41.9 Anxiety disorder, unspecified; D64.9 Anemia, unspecified; I48.91 Unspecified atrial fibrillation; E03.9 Hypothyroidism, unspecified; E78.5 Hyperlipidemia, unspecified; N18.9 Chronic kidney disease, unspecified; I50.9 Heart failure, unspecified; E87.6 Hypokalemia; Z90.710 Acquired absence of both cervix and uterus; Z88.1 Allergy status to other antibiotic agents; Z85.42 Personal history of malignant neoplasm of other parts of uterus; Z80.9 Family history of malignant neoplasm, unspecified; Z82.49 Family history of ischemic heart disease and other diseases of the circulatory system
CPT/HCPCS: 10084

== ENCOUNTER 2016-11-16 09:14 | Inpatient (IN) | payer OTHER, BC ==
[~2016-11-16] VITALS: Ht 162.6 cm; Wt 87.1 kg
--- NOTE | ~2016-11-16 | EKG ---
[address] [address] ELECTROCARDIOGRAM REPORT Name: ERWINKIAH Room #: 210-P ADM IN M.R.#: [id number] Admission: 11/16/16 Attend Phys: Shadi Joseph Discharge: Date of : 29 Report #: [id number] THIS REPORT FOR: //name// [facility] Test Date: 2016-11-17 Test Time: 07:39:11 Pat Name: KIAH HOOD Department: Room: 210 Gender: F Administrative Technician: Woody FUNEZ : 1930 Requested By: Shadi Joseph Order Number: [id number] MD: Pablo Posadas Measurements Intervals [place] Rate: 82 P: 54 HI: 205 QRS: 56 QRSD: 89 T: 42 QT: 377 QTc: 441 Interpretive Statements Sinus rhythm Nonspecific T abnormalities, anterior leads Compared to ECG 08/14/2016 11:53:25 T-wave abnormality now present Electronically Signed On 11-17-2016 8:14:50 CDT by Pablo Posadas [email or web address] <ELECTRONICALLY SIGNED> By: Pablo Posadas MD 11/17/16813 8 Pablo Posadas MD /[facility]
--- NOTE | ~2016-11-16 | CATHLAB ---
[facility] [place] [address] INVASIVE PROCEDURE REPORT Name: ERWINKIAH VITALE Room #: 210-P [facility] IN [facility]#: [id number] Admission: 11/16/16 Attend Phys: Shadi Walter Discharge: Date of : 29 Date of Service: 11/23/16 1758 Report #: [id number] THIS REPORT FOR: //name// APPROVED REPORT Patient Status: OP Room #: Event Personnel: Shadi Joseph Wire Stitcher Operator, Jermaine Frazier, [facility] Monitor, Bisi Isaac Morgan, Carol RN RN Exam: Insertion of Dual Chamber Permanent Pacemaker Indications: Sinus Bradycardia (Persistant), significant pauses of greater than 2 seconds with symptoms of fatigue tiredness and syncope The patient is a 86 year-old female with a history of Syncope. Patient Info BUN: 14 Creatine: 1.3 Conscious Sedation Start time: 13:52 End Time: 1500 Versed 4.0 mg DEMORAL 50 mg Implanted Devices: [employer] RV lead MODEL # 2088TC-52 SN# [id number] EXP 09/07/2019 [employer] RA lead MODEL # 2088TC-46 SN# [id number] EXP 01/07/2019 [employer] Generator MODEL # [id number] SN# [id number] EXP 05/09/2018 Procedure The patient underwent informed consent. We discussed the details of the procedure including the risks, which include, but not limited to bleeding, infection, vascular damage, cardiac perforation, and pneumothorax. She understood these risks and was willing to proceed. As such, she was brought to the EP laboratory in a fasting and sedated state and prepped and draped in a sterile fashion, received IV antibiotics prior to initiation of the procedure and a venogram was performed showing patency of the left axillary vein. The patient underwent MAC anesthesia, with no anesthesia related complications. The patient was brought to the cardiac catheterization lab and the left chest and shoulder were prepped and [place]ed [place] [address] INVASIVE PROCEDURE REPORT Name: KIAH HOOD Room #: 210-P [facility] IN [facility].#: [id number] Admission: 11/16/16 Attend Phys: Shadi Walter Discharge: Date of : 29 Date of Service: 11/23/16 1758 Report #: [id number] During this case, Fluoroscopy and low osmolar contrast were used for imaging. The left subclavian region was infiltrated with 2% Lidocaine subcutaneous anesthesia. A transverse incision was made in the left upper chest cavity. The subcutaneous pocket was formed via blunt dissection. Percutaneous venous access was achieved and an introducer sheath was inserted into the left Subclavian vein. Sheaths were positions using the modified Seldinger technique Through the introducer sheaths the atrial and ventricular lead wires were positioned in the right atrial appendage and right ventricular apex respectively. Utilizing fluoroscopic guidance, the atrial and ventricular lead wires were advanced over the wires and positioned in the right atria and right ventricle respectively. Capturing and sensing thresholds were verified. The ventricular lead was interrogated and results noted below were obtained. Electrode Parameters P Wave: 2.5 R Wave: > 12 Atrial Threshold: 0.75 Ventricular Threshold: 0.75 Atrial Resistance: 460 Ventricular Resistance: 690 Dual Chamber The atrial and ventricular leads were then secured using 2.0 ethibond. The subcutaneous pocket was irrigated with vancomycin antibiotic solution.The atrial and ventricular leads were attached to the appropriate receptacles on the pulse generator and set screws firmly tightened to insure adequate contact and stability. Complications The patient tolerated the procedure well and there were no complications associated with the procedure. Conclusion 1. Successful insertion of a dual-chamber pacemaker Recommendations 1. Routine post-pacemaker protocol <ELECTRONICALLY SIGNED> By: Shadi Joseph MD 11/23/161757 57 57 Shadi Joseph MD /INF
[~2016-11-16 09:14] MED LIST changes: +MINOCIN100 MG PO
[2016-11-16 10:36] VITALS: BP 161/69
[2016-11-16] MEDS ORDERED: ASPIR 8181 MG PO (11:18)
[2016-11-16 16:15] VITALS: BP 162/76
[2016-11-16 20:01] VITALS: BP 149/70
[2016-11-16 22:43] VITALS: BP 157/70
[2016-11-17] VITALS (8 sets, daily range): BP systolic 147–172; BP diastolic 57–95
[2016-11-18 02:45] VITALS: BP 155/64
[2016-11-18 08:16] VITALS: BP 162/70
[2016-11-18] MEDS ORDERED: POTASSIUM20 PO (08:17)
[2016-11-18 12:34] VITALS: BP 152/67
[2016-11-18 13:48] LABS: HEMATOCRIT 37.5 % (37.0-47.0); HEMOGLOBIN 12.2 gm/dL (12.0-15.0); MCH 28.7 pg (26.0-34.0); MCHC 32.6 g/dL (28.0-37.0); RBC 4.26 mil/uL (4.20-5.00); RDW 16.8 % (10.5-14.5); WBC 10.2 thou/uL (4.0-11.0)
[2016-11-18 14:00] LABS: ALBUMIN 2.5 g/dL (3.4-5.0); CALCIUM 8.5 mg/dL (8.5-10.1); CREATININE 1.2 mg/dL (0.6-1.0); POTASSIUM 3.7 mmol/L (3.5-5.1); TOTAL BILIRUBIN 0.5 mg/dL (<0.1-1.0); TOTAL PROTEIN 6.1 g/dL (6.4-8.2)
[2016-11-18 14:31] VITALS: BP 152/67
[2016-11-18 16:35] VITALS: BP 153/61
[2016-11-18 19:17] VITALS: BP 143/55
[2016-11-19] VITALS (7 sets, daily range): BP systolic 140–167; BP diastolic 44–72
[2016-11-20] VITALS (10 sets, daily range): BP systolic 105–164; BP diastolic 50–90
[2016-11-20 05:39] LABS: HEMATOCRIT 37.7 % (37.0-47.0); HEMOGLOBIN 12.2 gm/dL (12.0-15.0); MCH 28.4 pg (26.0-34.0); MCHC 32.3 g/dL (28.0-37.0); MCV 87.8 fL (80.0-100.0); RBC 4.3 mil/uL (4.20-5.00); RDW 17.2 % (10.5-14.5); WBC 9.6 thou/uL (4.0-11.0)
[2016-11-20 05:47] LABS: CALCIUM 8.3 mg/dL (8.5-10.1); CREATININE 1.3 mg/dL (0.6-1.0); POTASSIUM 3.7 mmol/L (3.5-5.1)
[2016-11-21 00:08] VITALS: BP 159/65
[2016-11-21 03:38] VITALS: BP 174/68
[2016-11-21 06:33] LABS: HEMATOCRIT 37.5 % (37.0-47.0); HEMOGLOBIN 12.1 gm/dL (12.0-15.0); MCH 28.7 pg (26.0-34.0); MCHC 32.2 g/dL (28.0-37.0); MCV 89.2 fL (80.0-100.0); RBC 4.2 mil/uL (4.20-5.00); RDW 16.9 % (10.5-14.5); WBC 9.1 thou/uL (4.0-11.0)
[2016-11-21 06:40] LABS: CALCIUM 8.4 mg/dL (8.5-10.1); CREATININE 1.3 mg/dL (0.6-1.0); POTASSIUM 3.4 mmol/L (3.5-5.1)
[2016-11-21 07:46] VITALS: BP 150/80
[2016-11-21 11:33] VITALS: BP 138/60
[2016-11-21 15:54] VITALS: BP 139/50
[2016-11-21 19:22] VITALS: BP 128/41
[2016-11-22 03:40] VITALS: BP 154/63
[2016-11-22 07:19] VITALS: BP 151/59
[2016-11-22 09:22] LABS: CALCIUM 8.8 mg/dL (8.5-10.1); CREATININE 1.5 mg/dL (0.6-1.0); POTASSIUM 3.7 mmol/L (3.5-5.1)
[2016-11-22 11:29] VITALS: BP 187/79
[2016-11-22 15:32] VITALS: BP 152/65
[2016-11-22 20:58] VITALS: BP 135/58
[2016-11-22 23:37] VITALS: BP 160/68
[2016-11-23 04:12] VITALS: BP 159/71
[2016-11-23 07:21] VITALS: BP 173/65
[2016-11-23 12:09] VITALS: BP 154/59
[2016-11-23 15:05] VITALS: BP 147/54
[2016-11-23 19:04] VITALS: BP 156/59
[2016-11-23 20:19] VITALS: BP 139/55
[2016-11-24 03:27] VITALS: BP 145/60
[2016-11-24 07:48] VITALS: BP 154/56
[2016-11-24 12:00] VITALS: BP 145/48
[2016-11-24 12:41] LABS: HEMATOCRIT 39.1 % (37.0-47.0); HEMOGLOBIN 12.4 gm/dL (12.0-15.0); MCH 28.1 pg (26.0-34.0); MCHC 31.9 g/dL (28.0-37.0); MCV 88.1 fL (80.0-100.0); RBC 4.43 mil/uL (4.20-5.00); RDW 16.7 % (10.5-14.5); WBC 13.6 thou/uL (4.0-11.0)
[2016-11-24 12:50] LABS: CALCIUM 8.7 mg/dL (8.5-10.1); CREATININE 1.3 mg/dL (0.6-1.0); POTASSIUM 3.8 mmol/L (3.5-5.1)
[2016-11-24 16:00] VITALS: BP 147/52
[2016-11-24 19:45] VITALS: BP 185/68
[2016-11-24 22:08] VITALS: BP 151/55
[2016-11-25 02:44] LABS: HEMATOCRIT 38.3 % (37.0-47.0); HEMOGLOBIN 12.3 gm/dL (12.0-15.0); MCHC 32.2 g/dL (28.0-37.0); RBC 4.4 mil/uL (4.20-5.00); RDW 16.3 % (10.5-14.5); WBC 12.6 thou/uL (4.0-11.0)
[2016-11-25 02:57] LABS: CALCIUM 8.9 mg/dL (8.5-10.1); CREATININE 1.2 mg/dL (0.6-1.0)
[2016-11-25 03:33] VITALS: BP 141/55
[2016-11-25 08:55] VITALS: BP 148/56
[2016-11-25 16:20] VITALS: BP 141/61
[2016-11-25 19:31] VITALS: BP 146/58
[2016-11-26] VITALS (7 sets, daily range): BP systolic 126–159; BP diastolic 45–71
[2016-11-26 03:54] LABS: ABSOLUTE NEUTROPHILS 7.4 thou/uL (1.4-8.2); BASOPHILS 0.4 % (0.0-2.0); EOSINOPHILS 6.3 % (0.0-3.0); HEMATOCRIT 39.3 % (37.0-47.0); HEMOGLOBIN 12.2 gm/dL (12.0-15.0); LYMPHOCYTES 28.3 % (24.0-44.0); MCH 27.7 pg (26.0-34.0); MCHC 31.1 g/dL (28.0-37.0); MCV 89.3 fL (80.0-100.0); MONOCYTES 7.1 % (1.0-8.0); PLATELET COUNT 316 thou/uL (150-400); POLYS 57.9 % (36.0-66.0); RDW 16.6 % (10.5-14.5); WBC 12.8 thou/uL (4.0-11.0)
[2016-11-26 03:59] LABS: MANUAL DIFF NO
[2016-11-26 04:04] LABS: ALBUMIN 2.4 g/dL (3.4-5.0); CALCIUM 8.7 mg/dL (8.5-10.1); CREATININE 1.4 mg/dL (0.6-1.0); MAGNESIUM 1.9 mg/dL (1.8-2.4); POTASSIUM 4.1 mmol/L (3.5-5.1); TOTAL BILIRUBIN 0.3 mg/dL (<0.1-1.0); TOTAL PROTEIN 6.3 g/dL (6.4-8.2)
[2016-11-27 05:00] VITALS: BP 146/58
[2016-11-27 07:35] VITALS: BP 144/45
[2016-11-27 12:44] VITALS: BP 159/62
[2016-11-27 13:21] VITALS: BP 159/62
== END 2016-11-27 13:53 | disposition home or self-care (01) | DRG 242 ==
LOC: CATH 09:14 → SPEC 09:37 → CATH 09:42 → 2N 15:53 → CATH 19:24 → 2N 11-27 13:53
PROVIDERS: Internal Medicine; Internal Medicine Pulmonary Disease; Nurse Practitioner; Nurse Practitioner Gerontology; Surgery
PROC: 0JH606Z Insertion of Pacemaker, Dual Chamber into Chest Subcutaneous Tissue and Fascia, Open Approach (ICD-10-PCS; principal; 2016-11-16)
PROC: 02H63JZ Insertion of Pacemaker Lead into Right Atrium, Percutaneous Approach (ICD-10-PCS; principal; 2016-11-16)
PROC: 02HK3JZ Insertion of Pacemaker Lead into Right Ventricle, Percutaneous Approach (ICD-10-PCS; principal; 2016-11-16)
PROC: 0W9B30Z Drainage of Left Pleural Cavity with Drainage Device, Percutaneous Approach (ICD-10-PCS; 2016-11-17)
PROC: BF131ZZ Fluoroscopy of Gallbladder and Bile Ducts using Low Osmolar Contrast (ICD-10-PCS; 2016-11-19)
PROC: 0W28X0Z Change Drainage Device in Chest Wall, External Approach (ICD-10-PCS; 2016-11-20)
DX: I49.5 Sick sinus syndrome (principal); E43 Unspecified severe protein-calorie malnutrition; I13.0 Hypertensive heart and chronic kidney disease with heart failure and stage 1 through stage 4 chronic kidney disease, or unspecified chronic kidney disease; N17.9 Acute kidney failure, unspecified; T85.510A Breakdown (mechanical) of bile duct prosthesis, initial encounter; K81.0 Acute cholecystitis; J93.83 Other pneumothorax; J98.9 Respiratory disorder, unspecified; Y83.8 Other surgical procedures as the cause of abnormal reaction of the patient, or of later complication, without mention of misadventure at the time of the procedure; N18.3 Chronic kidney disease, stage 3 (moderate); I50.9 Heart failure, unspecified; I48.91 Unspecified atrial fibrillation; E87.6 Hypokalemia; D64.9 Anemia, unspecified; E03.9 Hypothyroidism, unspecified; F41.9 Anxiety disorder, unspecified; E78.5 Hyperlipidemia, unspecified; R21 Rash and other nonspecific skin eruption; J43.9 Emphysema, unspecified; K64.9 Unspecified hemorrhoids; K59.00 Constipation, unspecified; Z87.81 Personal history of (healed) traumatic fracture; Z79.82 Long term (current) use of aspirin; Z79.899 Other long term (current) drug therapy; Y92.89 Other specified places as the place of occurrence of the external cause; Z68.33 Body mass index [BMI] 33.0-33.9, adult; Z90.710 Acquired absence of both cervix and uterus; Z88.1 Allergy status to other antibiotic agents; Z82.49 Family history of ischemic heart disease and other diseases of the circulatory system; Z80.8 Family history of malignant neoplasm of other organs or systems; Y71.8 Miscellaneous cardiovascular devices associated with adverse incidents, not elsewhere classified
CPT/HCPCS: 10081; 51196

== ENCOUNTER 2016-12-29 05:21 | Inpatient (IN) | payer OTHER, BC ==
[2016-12-29] VITALS (16 sets, daily range): BP systolic 84–167; BP diastolic 46–73
[~2016-12-29] VITALS: Ht 162.6 cm; Wt 88.5 kg
--- NOTE | ~2016-12-29 | HC ---
[facility] [place] [address] CONSULTATION Name: KIAH HOOD Room #: 306-P [facility] IN M.R.#: [id number] Admission: 12/29/16 Attend Phys: Patricia Gardner MD, Discharge: 01/02/17 Date of : 29 Report #: [id number] THIS REPORT FOR: //name// CC: Patricia Jones [place] DATE OF SERVICE: 12/31/2016 NEPHROLOGY CONSULTATION REASON FOR CONSULTATION: Elevated creatinine. HISTORY OF PRESENT ILLNESS: This 86-year-old patient had cholecystitis, had a tube placed for 12 weeks and finally underwent open cholecystectomy 2 days ago. Creatinine initially 1.2 with a history of hypertension in the past, then creatinine maeve to 2.2 and then 2.4. PAST MEDICAL HISTORY: Hypertension, previous uterine cancer with hysterectomy in 1991, previous left shoulder repair, history of atrial fibrillation with pacemaker in place and the cholecystitis as mentioned. ALLERGIES: Reportedly to LEVAQUIN. HOME MEDICATIONS: Alprazolam, aspirin 81 mg daily, atenolol 25 mg daily, atorvastatin 20 mg daily, diltiazem CD 180 mg daily, Lexapro 10 mg daily, furosemide 20 mg daily, Thyroid 0.112 mg daily, Senokot and tramadol. REVIEW OF SYSTEMS: GENERAL: She is feeling reasonable here postoperatively. EYES: Vision okay. ENT: Hearing is poor bilaterally. Mucous membranes dry. RESPIRATORY: She is not short of breath. ENDOCRINE: No history of diabetes. CARDIAC: She has had some arrhythmias, but no chest pain. GASTROINTESTINAL: Not much appetite postoperative. GENITOURINARY: Has a prolonged slow urinary stream. NEUROLOGIC: She has been a little confused after surgery. PHYSICAL EXAMINATION: GENERAL: This is an elderly reasonable-appearing woman, no acute distress. SKIN: Shows poor turgor. SKELETAL: Somewhat obese. HEENT: Extraocular movements are full. Vision intact with corrective lenses. Hearing intact. Mucous membranes dry. NECK: Neck veins are flat. CHEST: Decreased breath sounds. [facility] [address] [place] [address] CONSULTATION Name: KIAH HOOD Room #: 306-P [facility] IN M.R.#: [id number] Admission: 12/29/16 Attend Phys: Patricia Gardner MD, Discharge: 01/02/17 Date of : 29 Report #: [id number] HEART: Distant. ABDOMEN: Soft and nontender, with a wound VAC over the open cholecystectomy incision. EXTREMITIES: Show trace peripheral edema. NEUROLOGIC: Grossly intact. LABORATORY DATA: The hemoglobin is 9.9, white count 12.5 and platelets 195,000. The sodium is 133, potassium 4.5, chloride 99, bicarbonate 23, BUN 28 and creatinine 2.4. ASSESSMENT AND PLAN: Elevated creatinine. She appears to have underlying kidney disease with a baseline creatinine of around 1.2, which is certainly high for an 86-year-old woman. She has had long-standing hypertension and some cardiac disease, probably multifactorial now. Acute elevation, probably a combination of volume depletion, possibly some ATN. Urinalysis, urine sodium and creatinine will be done. These will be helpful. We need to be sure to provide adequate IV fluids. It looks like she has not really been getting enough, I will adjust that and we will follow her along. <ELECTRONICALLY SIGNED> By: Britton Wolf MD 01/06/17 1122 1035 1305 Britton Wolf MD /nt
--- NOTE | ~2016-12-29 | O ---
[facility] [place] [address] OPERATIVE REPORT Name: KIAH HOOD Room #: 306-P ADM IN M.R.#: [id number] Admission: 12/29/16 Attend Phys: Patricia Gardner MD, Discharge: Date of : 29 Report #: [id number] THIS REPORT FOR: //name// CC: Patricia Gardner [place] DATE OF SERVICE: 12/29/2016 PREOPERATIVE DIAGNOSES: 1. Chronic cholecystitis with indwelling percutaneous cholecystostomy tube. 2. Suspected intraabdominal adhesions. 3. Obesity with a BMI of 33.5. 4. Hypertension. 5. Hypercholesterolemia. 6. Hypothyroidism. POSTOPERATIVE DIAGNOSES: 1. Acute on chronic cholecystitis with indwelling percutaneous cholecystostomy tube. 2. Dense intraabdominal adhesions. 3. Cholecystocolonic fistula. 4. Obesity with a BMI of 33.5. 5. Hypertension. 6. Hypercholesterolemia. 7. Hypothyroidism. PROCEDURES PERFORMED: 1. Laparoscopic converted to open cholecystectomy with an intraoperative cholangiogram. 2. Extensive lysis of adhesions lasting 88 minutes. 3. Take down of the cholecystocolonic fistula with suture repair of the colotomy and omental buttressing. 4. Placement of a topical wound VAC device (Prevena). 5. Modifier 22 procedure for extreme difficulty of procedure secondary to the patient's marked inflammatory response intraabdominally that necessitated near hour and a half lysis of adhesions and required conversion from laparoscopic to an open procedure, all in the face of an obese woman with a very thick abdominal wall, significantly limited visualization and added to the complexity of the procedure. Total operative time was 2-1/2 hours as opposed to the usual 15-20 minute laparoscopic cholecystectomy. SURGEON: Patricia Gardner MD DIRECTOR EMERGENCY SERVICES: Blayne Good MD ANESTHESIA: General endotracheal anesthesia. [address] [address] OPERATIVE REPORT Name: ERWINKIAH VITALE Room #: 306-P [facility] IN [facility]#: [id number] Admission: 12/29/16 Attend Phys: Patricia Gardner MD, Discharge: Date of : 29 Report #: [id number] ESTIMATED BLOOD LOSS: Minimal (less than 50 mL). COMPLICATIONS: None appreciated. SPECIMENS: Gallbladder to pathology. INDICATIONS: The patient is an 86-year-old female who presented to the hospital in early October with severe right upper quadrant abdominal pain with findings of severe acute cholecystitis. The patient underwent an attempted laparoscopic cholecystectomy as her symptoms were new in onset and significant intra-abdominal adhesions were found with inability to visualize the gallbladder whatsoever. At that time, we backed out of the operating room and the patient underwent percutaneous cholecystostomy tube placement through the dome of the liver into the back wall of the gallbladder with findings of severe cholecystitis. After thorough discussion with the patient, she related that her symptoms had likely actually been ongoing for upwards of 2 weeks as opposed to the 24-hour history she initially delivered. Nonetheless, the patient was therefore managed with antibiotics and percutaneous cholecystostomy tube as an outpatient for the last 10 weeks and now indication was for definitive surgical management in the form of cholecystectomy, which necessitated conversion from laparoscopic to an open procedure today. DESCRIPTION OF PROCEDURE: After explaining the risks, benefits and alternatives of the procedure with the patient in detail and obtaining consent, the patient was brought to the operating room and placed supine on the operating room table. After conducting a thorough timeout procedure verifying correct patient and procedure, the patient was given general endotracheal anesthesia. Once adequate anesthesia was obtained, her SCDs were hooked up to pneumatic compression device. She was given a preoperative dose of antibiotics in line with the SCIP protocol. The patient's abdomen was prepped and draped in a standard surgical sterile fashion. 5 mL of 0.5% Marcaine with epinephrine were used to anesthetize the skin in supraumbilical location. A #15 bladed scalpel was used to create a 1 cm transverse skin incision at this location. An 11 mm Visiport was placed over 0 degree 5 mm laparoscope and was introduced through this incision site. Once intraabdominal placement was verified visually, the obturator for the trocar and laparoscope were both removed and the abdomen was insufflated to 15 mmHg using carbon dioxide gas. The laparoscope was changed to a 10 mm 30-degree laparoscope, which was reintroduced through this trocar. The entire abdomen was evaluated to ensure no injury upon entry. We immediately identified ongoing significant adhesions in the right upper quadrant. The patient was placed in reverse Trendelenburg with the right side elevated and I proceeded to place three additional 5 mm ports in standard fashion. The first was placed in the subxiphoid location and two were placed along the patient's right subcostal margin. All three 5 mm ports were placed under direct vision after anesthetizing the skin at each location with 5 mL of 0.5% Marcaine with [facility] [address] [place] [address] OPERATIVE REPORT Name: KIAH HOOD Room #: 306-P [facility] IN M.Yuliya.#: [id number] Admission: 12/29/16 Attend Phys: Patricia Gardner MD, Discharge: Date of : 29 Report #: [id number] epinephrine and I created small skin peter at each location using #15 bladed scalpel. I now began performing a lysis of adhesions using Harmonic scalpel to take down all the adhesions from the omentum to the abdominal wall in the right upper quadrant. Ultimately, we were able to identify the dome of the gallbladder and using the inferolateral most port on the patient's right flank, we grasped the dome of the gallbladder and retracted it cephalad. We now continued significant dissection to attempt to visualize the cholecysto-cystic junction; however, there was a segment of colon intimately plastered to the mid portion of the gallbladder wall. At this juncture, I proceeded to perform an intraoperative cholangiogram using 50 mL of Isovue injected through her cholecystostomy tube, we were able to identify a patent cystic duct with both intra and extrahepatic bile ducts becoming opacified. There was antegrade flow of contrast into the duodenum with no evidence of filling defects or obstruction. At the location of the colon touching the gallbladder there was a small divot seen on the cholangiogram; however, there was no evidence of free flow of contrast into the colon at this juncture. Further dissection at this location yielded what appears to be a cholecystocolonic fistula into the submucosa of the colon wall. At this juncture, it was still so intimately plastered to the gallbladder that decision was made to convert to an open procedure as this was not going to be performed successfully laparoscopically. The laparoscope was changed back to a 5-mm 30-degree laparoscope, which was reintroduced through the right midclavicular 5 mm port. I closed the fascial incision for the supraumbilical fascial port using 0 PDS on a Americo-Vick suture passer device under direct vision. This was tied down. The abdomen was now fully desufflated. All remaining ports were removed under direct vision. A #10 bladed scalpel was used to connect the subxiphoid incision with the right midclavicular subcostal incision and carried laterally to the right flank in a subcostal location. Electrocautery was used to carry this down through skin and subcutaneous tissues until we arrived upon the anterior fascia. This was scored with electrocautery revealing the abdominal wall muscle musculature and this was opened in a tedious fashion for complete hemostasis in standard fashion. Once we arrived upon the posterior fascia, this was opened along its length as well revealing the intra-abdominal domain. The Omni retractor was now placed for optimum exposure and a Pean clamp was used to elevate the dome of the gallbladder into the bed of the wound. We continued extensive dissection that was quite tedious and ultimately using Metzenbaum scissors I was able to free the colon from its intimate attachments with the gallbladder. Evaluation of the colon at this juncture appeared that it had fistulized into what appears to be the submucosa of the colon, but we had no obvious free passage into the colon lumen itself. We then turned our attention back to the gallbladder and after ongoing dissection with electrocautery and Metzenbaum scissors I was able to attain a critical view. The Harmonic scalpel was used for hemostasis on the cystic artery and as the cholecysto-cystic junction was still intimately inflamed and plastered, I selected a TX 30 blue load stapler to transect the gallbladder at the cholecysto-cystic junction. This was clamped at this location after creating a window through the critical view and #[address] [address] OPERATIVE REPORT Name: KIAH HOOD Room #: 306-P [facility] IN M.R.#: [id number] Admission: 12/29/16 Attend Phys: Patricia Gardner MD, Discharge: Date of : 29 Report #: [id number] scalpel was used to excise the remaining tissue on the gallbladder side. Further retraction at the infundibulum of the gallbladder in cephalad direction allowed me to elevate the gallbladder off the liver bed using electrocautery for hemostasis. The gallbladder was passed off the field and hemostasis was attained in the gallbladder fossa with electrocautery. We irrigated with 1 liter normal saline, which ran clear. I did place Surgicel in the bed of the gallbladder fossa and packed it tightly with a lap pad at this juncture. We now turned our attention to the colotomy. This was clean, we had no stool contamination or spillage; however, the tissue was slightly friable. I therefore elected to repair this in several layers using 3-0 PDS, taking full thickness bites for the innermost layer. I then imbricated over the suture line with 3-0 PDS suture in standard Lembert fashion placing five interrupted sutures. I then utilized 10 mL of Tisseel to coat the suture line with fibrin glue. The tails for the imbricating sutures were left long and then I created a vascularized omental pedicle, which was then laid over the suture repair and the tails from each of the sutures were tied down creating a Chalino patch buttressed repair of the suture line on the colon. The lap pad was removed from the gallbladder fossa and I utilized FloSeal over top of the Surgicel for long-term hemostasis. I then brought out a 19-Persian round Allen-Glasgow drain out of the right flank, which was anchored to the skin using 2-0 nylon in standard fashion. This was placed in the subhepatic space. The wound was irrigated one further time and the irrigant ran clear with no bile staining or spillage and we had complete hemostasis. I then closed the abdominal wall in 2 layers using #1 PDS in standard running fashion for both the posterior fascia as well as the anterior fascial layer. Skin was irrigated and all skin incisions were closed using skin lanette. I then placed a Prevena topical wound VAC device overlying the right subcostal incision and there was no leak evident whatsoever. At the end of the lengthy procedure all instrument, needle and sponge counts were correct. The patient tolerated the procedure without incident, was awakened in the operating room, transitioned to the recovery room in stable condition with no apparent complications. <ELECTRONICALLY SIGNED> By: Patricia Gardner MD, FACS 12/29/16 1725 [id number] Patricia Gardner MD, FACS /nt
--- NOTE | ~2016-12-29 | HC ---
[facility] [place] [address] CONSULTATION Name: KIAH HOOD Room #: 306-P ADM IN M.R.#: [id number] Admission: 12/29/16 Attend Phys: Patricia Gardner MD, Discharge: Date of : 29 Report #: [id number] THIS REPORT FOR: //name// CC: Patricia Jones [place] DATE OF SERVICE: 12/30/2016 REASON FOR CONSULTATION: Medical management. HISTORY OF PRESENT ILLNESS: The patient is a pleasant 86-year-old female admitted for elective cholecystectomy after recently having prior drainage tube. She subsequently has undergone open cholecystectomy and is seen on postop day 1. 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 There has been reportedly some possible trouble with swallowing liquids, but she otherwise denies fevers, skin rashes, chest pain, headaches, nausea, dyspnea or other worsening symptoms at this time. PAST MEDICAL HISTORY: Includes: 1. Acute cholecystitis requiring tube drainage. 2. Acute renal failure in the past. 3. Hypertension. 4. Rectal bleeding. 5. CHF with normal EF. 6. Uterine cancer with hysterectomy in 1991. 7. Left shoulder repair in 08/2016. 8. Ectopic in 1952. 9. in 1957. 10. Hypothyroidism. 11. Hyperlipidemia. 12. Atrial fibrillation. 13. Implanted heart monitor. ALLERGIES: REPORTED TO LEVAQUIN. MEDICATIONS: Refer to reconciliation note. SOCIAL HISTORY: No alcohol, tobacco or drug use reported. FAMILY HISTORY: Not relevant in this elderly female. REVIEW OF SYSTEMS: Twelve-point review of systems performed, negative except as mentioned in the history of present illness. PHYSICAL EXAMINATION: [facility] [address] [place] [address] CONSULTATION Name: KIAH HOOD Room #: 306-P [facility] IN M.R.#: [id number] Admission: 12/29/16 Attend Phys: Patricia Gardner MD, Discharge: Date of : 29 Report #: [id number] VITAL SIGNS: Afebrile, pulse of 80, respiration rate of 18, O2 sat is 95 on nasal cannula, blood pressure is 131/63. GENERAL: Elderly lady in no acute distress. HEENT: Unremarkable. NECK: No JVD or thyromegaly. CARDIOVASCULAR: S1 and S2 present, regular. RESPIRATORY: Air entry present bilaterally. ABDOMEN: Soft, tender to palpation over the incision in the right upper quadrant. Drain noted in place. Bowel sounds scanty. EXTREMITIES: With trace edema bilaterally. NEUROLOGIC: Awake, alert and appropriately responsive. No obvious focality. SKIN: Unremarkable for rash or lesions. LABORATORIES AND INVESTIGATIONS: Notable for leukocytosis of 23.6, hemoglobin is 11.4, platelets of 288. Chemistry with elevated BUN and creatinine 21 and 2.2. ASSESSMENT AND PLAN: The patient is an 86-year-old female, postoperative day #1 from open cholecystectomy. 1. Open cholecystectomy. Management per General Surgery. Tube drain in place. Pain control and diet per Surgery. Monitor leukocytosis, which is likely in the perioperative setting. 2. Acute renal failure. Continue IV fluids. We will discontinue potassium from IV fluids in setting of worsening creatinine and we will discontinue her diuretics. She is being closely monitored for any potential retention and rediscussed this with RN at bedside. 3. Chronic atrial fibrillation, is rate controlled on diltiazem. 4. Hypothyroidism, on Synthroid. 5. Deep venous thrombosis prophylaxis, on Lovenox. I appreciate this consultation and opportunity to be involved in the care of this patient. <ELECTRONICALLY SIGNED> By: Bruno Duckworth MD 12/31/16 1206 1414 [id number] Bruno Duckworth MD /nt
--- NOTE | ~2016-12-29 | S ---
[facility] [place] [address] SURGICAL PATH RPT PROCEDURE Name: KIAH HOOD Room #: 306-P ADM IN M.R.#: [id number] Admission: 12/29/16 Date of : 29 Discharge: Report #: [id number] Path Case #: [id number] PATHOLOGY REPORT COLLECTION DATE: 12/29/2016 RECEIVED DATE: 12/29/2016 SUBMITTING PHYS: Dr. Patricia Gardner OTHER PHYS: Dr. Robert Hernandez SPECIMEN(S) RECEIVED: A.Gallbladder * * * * * * * * * * * * FINAL DIAGNOSIS: Gallbladder, cholecystectomy: - Moderate acute and hemorrhagic cholecystitis. PATHOLOGIST: Sarita Berrios M.D. REPORT ELECTRONICALLY SIGNED BY: Sarita Berrios M.D. DATE/TIME: 12/30/2016 15:35 * * * * * * * * * * * * GROSS PATHOLOGY: Received in formalin labeled "Kiah Hood gallbladder," is a 6.1 x 2.8 x 2.1 cm, previously opened gallbladder with pink-brown, roughened, and irregular serosal surfaces. Opening the gallbladder reveals a rashid-brown, velvety, and partially eroded mucosa and an average wall thickness of 0.1 cm. Calculi are not present and no masses are noted grossly. Due to the nature of the specimen the proximal margin is unrecognizable. Camera Repairman sections from the body and fundus are submitted in cassette A1. (SDY; 12/29/2016) After filtration of the gallbladder contents and formalin filled container, no calculi are present. (SDY; 12/30/2016) CLINICAL HISTORY: Cholelithiasis and cholecystitis INITIAL CPT CODE(S): A; 01134 Professional services performed by [facility] at [facility] [address] , [place] [address] [facility] [address] [place] [address] SURGICAL PATH RPT PROCEDURE Name: KIAH HOOD VITALE Room #: 306-P [facility] IN .R.#: [id number] Admission: 12/29/16 Date of : 29 Discharge: Report #: [id number] Path Case #: [id number] Technical services performed by [facility] at [address] [place] [address], [facility] [address] [address]. [place] [address] PHONE: [phone] DIRECTOR: Mason Barrera M.D. * * * END OF REPORT * * *
[~2016-12-29 05:21] MED LIST changes: +ASPIR 8181 MG PO; +POTASSIUM20 PO
[2016-12-29 07:30] LABS: HEMATOCRIT 37.5 % (37.0-47.0); MCH 28.7 pg (26.0-34.0); MCHC 31.9 g/dL (28.0-37.0); MCV 89.7 fL (80.0-100.0); RBC 4.18 mil/uL (4.20-5.00); RDW 15.8 % (10.5-14.5); WBC 11.1 thou/uL (4.0-11.0)
[2016-12-29 07:43] LABS: CALCIUM 8.8 mg/dL (8.5-10.1); CREATININE 1.2 mg/dL (0.6-1.0); POTASSIUM 3.9 mmol/L (3.5-5.1)
[2016-12-29 07:49] LABS: ALBUMIN 2.7 g/dL (3.4-5.0); TOTAL BILIRUBIN 0.3 mg/dL (<0.1-1.0)
[2016-12-30 03:40] VITALS: BP 146/64
[2016-12-30 06:50] LABS: HEMATOCRIT 37.1 % (37.0-47.0); HEMOGLOBIN 11.4 gm/dL (12.0-15.0); MCH 27.9 pg (26.0-34.0); MCHC 30.8 g/dL (28.0-37.0); MCV 90.5 fL (80.0-100.0); RBC 4.09 mil/uL (4.20-5.00); RDW 16.1 % (10.5-14.5); WBC 23.6 thou/uL (4.0-11.0)
[2016-12-30 07:04] LABS: CALCIUM 8.4 mg/dL (8.5-10.1)
[2016-12-30 07:05] LABS: POTASSIUM 4.9 mmol/L (3.5-5.1)
[2016-12-30 07:06] LABS: CREATININE 2.2 mg/dL (0.6-1.0)
[2016-12-30 11:41] VITALS: BP 131/63
[2016-12-30 16:36] VITALS: BP 119/46
[2016-12-30 19:06] VITALS: BP 132/68
[2016-12-31 04:03] LABS: ABSOLUTE NEUTROPHILS 10.2 thou/uL (1.4-8.2); BASOPHILS 0.3 % (0.0-2.0); EOSINOPHILS 1.4 % (0.0-3.0); HEMATOCRIT 31.2 % (37.0-47.0); HEMOGLOBIN 9.9 gm/dL (12.0-15.0); LYMPHOCYTES 12.6 % (24.0-44.0); MCH 28.7 pg (26.0-34.0); MCHC 31.9 g/dL (28.0-37.0); MCV 89.9 fL (80.0-100.0); MONOCYTES 4.1 % (1.0-8.0); POLYS 81.6 % (36.0-66.0); RBC 3.47 mil/uL (4.20-5.00); RDW 16.1 % (10.5-14.5); WBC 12.5 thou/uL (4.0-11.0)
[2016-12-31 04:07] LABS: CALCIUM 8.6 mg/dL (8.5-10.1); CREATININE 2.4 mg/dL (0.6-1.0); POTASSIUM 4.5 mmol/L (3.5-5.1)
[2016-12-31 04:11] LABS: PLATELET COUNT 195 thou/uL (150-400)
[2016-12-31 04:32] VITALS: BP 147/64
[2016-12-31 08:37] LABS: MANUAL DIFF NO
[2016-12-31 08:38] VITALS: BP 137/64
[2016-12-31 12:45] LABS: URINE BILIRUBIN NEGATIVE (Negative); URINE BLOOD TRACE (Negative); URINE COLOR YELLOW; URINE GLUCOSE-RANDOM* NEGATIVE (Negative); URINE KETONES NEGATIVE (Negative); URINE NITRITE NEGATIVE (Negative); URINE PROTEIN (DIPSTICK) 1+ (Negative); URINE SPECIFIC GRAVITY >= 1.030 (1.003-1.035); URINE UROBILINOGEN 0.2 E.U./dl (0.2-1.0)
[2016-12-31 12:52] LABS: COARSE GRANULAR CASTS 4-10 Moderate /LPF (None Seen); HYALINE CASTS 4-10 Moderate /LPF (None Seen); SQUAMOUS >10 Many /LPF (0-3)
[2016-12-31 12:53] LABS: AMORPHOUS URATES Few /LPF (None Seen); BACTERIA 1-9 Few /HPF (None Seen); URINE RBC 0-2 Rare /HPF (0-2); URINE WBC 0-5 Rare /HPF (0-5)
[2016-12-31 12:57] LABS: URINE CREATININE-RANDOM* 155.8 mg/dL
[2016-12-31 19:58] VITALS: BP 153/74
[2016-12-31 23:20] VITALS: BP 153/74
[2017-01-01 03:45] VITALS: BP 159/90
[2017-01-01 05:46] LABS: ABSOLUTE NEUTROPHILS 8.2 thou/uL (1.4-8.2); BASOPHILS 0.2 % (0.0-2.0); EOSINOPHILS 2.3 % (0.0-3.0); HEMATOCRIT 31.5 % (37.0-47.0); HEMOGLOBIN 10.1 gm/dL (12.0-15.0); MCH 28.7 pg (26.0-34.0); MCHC 32.1 g/dL (28.0-37.0); MCV 89.3 fL (80.0-100.0); MONOCYTES 4.6 % (1.0-8.0); PLATELET COUNT 184 thou/uL (150-400); POLYS 79.9 % (36.0-66.0); RBC 3.53 mil/uL (4.20-5.00); WBC 10.3 thou/uL (4.0-11.0)
[2017-01-01 05:51] LABS: MANUAL DIFF NO
[2017-01-01 06:11] LABS: ALBUMIN 2.3 g/dL (3.4-5.0); CALCIUM 8.1 mg/dL (8.5-10.1); CREATININE 1.6 mg/dL (0.6-1.0); PHOSPHORUS 2.7 mg/dL (2.5-4.9); POTASSIUM 4.3 mmol/L (3.5-5.1)
[2017-01-01 08:00] VITALS: BP 175/73
[2017-01-01 16:00] VITALS: BP 155/79
[2017-01-01 20:15] VITALS: BP 155/91
[2017-01-02 04:03] VITALS: BP 155/76
[2017-01-02 06:55] LABS: ALBUMIN 2.1 g/dL (3.4-5.0); CALCIUM 8.3 mg/dL (8.5-10.1); CREATININE 1.3 mg/dL (0.6-1.0); PHOSPHORUS 2.5 mg/dL (2.5-4.9); POTASSIUM 4.2 mmol/L (3.5-5.1)
[2017-01-02 07:50] VITALS: BP 174/82
[2017-01-02 13:57] VITALS: BP 174/82
[2017-01-02 14:00] VITALS: BP 174/82
[2017-01-02 14:12] VITALS: BP 174/82
== END 2017-01-02 14:56 | disposition home health service (06) | DRG 414 ==
LOC: TBA 05:21 → OR 05:21 → 3N 12:44 → OR 13:24 → 3N 01-02 14:56
PROVIDERS: Anesthesiology; Internal Medicine Nephrology; Surgery
PROC: 0FT40ZZ Resection of Gallbladder, Open Approach (ICD-10-PCS; principal; 2016-12-29)
PROC: BF11YZZ Fluoroscopy of Biliary and Pancreatic Ducts using Other Contrast (ICD-10-PCS; principal; 2016-12-29)
PROC: 0FJ44ZZ Inspection of Gallbladder, Percutaneous Endoscopic Approach (ICD-10-PCS; principal; 2016-12-29)
PROC: 0DQE0ZZ Repair Large Intestine, Open Approach (ICD-10-PCS; principal; 2016-12-29)
PROC: 0DNE0ZZ Release Large Intestine, Open Approach (ICD-10-PCS; principal; 2016-12-29)
PROC: 0DNS0ZZ (ICD-10-PCS; principal; 2016-12-29)
DX: K81.0 Acute cholecystitis (principal); E43 Unspecified severe protein-calorie malnutrition; N17.9 Acute kidney failure, unspecified; K82.3 Fistula of gallbladder; I13.0 Hypertensive heart and chronic kidney disease with heart failure and stage 1 through stage 4 chronic kidney disease, or unspecified chronic kidney disease; E03.9 Hypothyroidism, unspecified; E78.00 Pure hypercholesterolemia, unspecified; E66.9 Obesity, unspecified; I50.9 Heart failure, unspecified; I49.5 Sick sinus syndrome; I48.0 Paroxysmal atrial fibrillation; K81.1 Chronic cholecystitis; F32.9 Major depressive disorder, single episode, unspecified; N18.9 Chronic kidney disease, unspecified; Z68.33 Body mass index [BMI] 33.0-33.9, adult; Z90.710 Acquired absence of both cervix and uterus; Z85.42 Personal history of malignant neoplasm of other parts of uterus; Z88.1 Allergy status to other antibiotic agents; Z95.0 Presence of cardiac pacemaker; Z98.42 Cataract extraction status, left eye; Z98.41 Cataract extraction status, right eye; Z88.8 Allergy status to other drugs, medicaments and biological substances
CPT/HCPCS: 10096; 50010; 50101; 50249; 50331; 50411; 50555; 50558; 50962; 51238; 51412; 51435; 51437; 51489; 51751; 51975; 52164; 52265; 53307; 54022; 54118; 55245; 55317; 56462; 56525; 56526; 56530; 62110; 62900; 70005

== ENCOUNTER 2017-01-06 14:24 | Emergency (ER) | payer OTHER, BC ==
[~2017-01-06] VITALS: Ht 162.6 cm; Wt 95.3 kg
[2017-01-06 15:56] LABS: HEMATOCRIT 34.5 % (37.0-47.0); HEMOGLOBIN 11.2 gm/dL (12.0-15.0); MCHC 32.4 g/dL (28.0-37.0); MCV 86.4 fL (80.0-100.0); WBC 14.3 thou/uL (4.0-11.0)
[2017-01-06 16:06] LABS: CALCIUM 8.6 mg/dL (8.5-10.1); CREATININE 1.1 mg/dL (0.6-1.0); POTASSIUM 3.5 mmol/L (3.5-5.1)
[2017-01-06 16:11] LABS: ALBUMIN 2.4 g/dL (3.4-5.0); TOTAL BILIRUBIN 0.3 mg/dL (<0.1-1.0); TOTAL PROTEIN 6.2 g/dL (6.4-8.2)
== END 2017-01-06 18:34 | disposition home or self-care (01) ==
LOC: ER 14:24
PROVIDERS: Emergency Medicine
DX: Z48.01 Encounter for change or removal of surgical wound dressing (principal); R10.11 Right upper quadrant pain; I10 Essential (primary) hypertension; E03.9 Hypothyroidism, unspecified; F32.9 Major depressive disorder, single episode, unspecified; F41.9 Anxiety disorder, unspecified; F10.99 Alcohol use, unspecified with unspecified alcohol-induced disorder; Z90.710 Acquired absence of both cervix and uterus; Z85.42 Personal history of malignant neoplasm of other parts of uterus; Z95.0 Presence of cardiac pacemaker; Z86.2 Personal history of diseases of the blood and blood-forming organs and certain disorders involving the immune mechanism; Z86.14 Personal history of Methicillin resistant Staphylococcus aureus infection; Z88.8 Allergy status to other drugs, medicaments and biological substances; Z88.1 Allergy status to other antibiotic agents